=== PATIENT | male | born 1985 ===

== ENCOUNTER → 2020-09-29 10:30 | Outpatient (BNVA) | payer OTHER, SELFPAY | PROVIDERS: PCP Family Medicine; Visit Provider Nurse Practitioner Family | DX: Z76.89 Persons encountering health services in other specified circumstances (principal) ==

== ENCOUNTER 2022-02-23 09:59 | Outpatient (REF) | payer OTHER, SELFPAY ==
[2022-02-23 11:50] LABS: Estimated Average Glucose 108 mg/dL; Hemoglobin A1c % 5.4 %
[2022-02-23 12:14] LABS: Alanine Aminotransferase 40 U/L (0-40); Albumin Level 4.3 g/dL (3.5-5.0); Alkaline Phosphatase 60 U/L (39-117); Anion Gap 10 (12-20); Aspartate Amino Transferase 21 U/L (5-37); Bilirubin Total 0.5 mg/dL (0.0-1.0); Blood Urea Nitrogen 9 mg/dL (9-16); Calcium 9.5 mg/dL (8.4-10.2); Carbon Dioxide 30 mmol/L (22-29); Chloride 103 mmol/L (96-108); Cholesterol 179 mg/dL; Estimated Glomerular Filt Rate > 60; Glucose Fasting 98 mg/dL (60-99); HDL Cholesterol 35 mg/dL; LDL Cholesterol Calculated 117 mg/dl; Potassium 4.5 mmol/L (3.3-5.1); Sodium 138 mmol/L (135-145); Total Protein 7.4 g/dL (6.5-8.0); Triglycerides 137 mg/dL
[2022-02-23 12:35] LABS: Free T4 (Free Thyroxine) 0.82 ng/dL (0.71-1.85); Thyroid Stimulating Hormone 2.67 uIU/mL (0.32-4.0)
[2022-02-24 22:10] LABS: Triiodothyronine T3 Total 82 ng/dL (76-181)
== END 2022-02-23 10:00 | disposition home or self-care (01) ==
LOC: HO.WFDLDS 09:59
PROVIDERS: Visit Provider Family Medicine
DX: Z00.00 Encounter for general adult medical examination without abnormal findings (principal); E03.9 Hypothyroidism, unspecified; R73.01 Impaired fasting glucose
CPT/HCPCS: 36415; 80053; 80061; 83036; 84439; 84443; 84480

== ENCOUNTER 2022-09-16 11:40 | Outpatient (REF) | payer OTHER, SELFPAY ==
[2022-09-16 13:48] LABS: Mean Corpuscular HGB Conc 35.2 g/dl (31.0-36.0); Mean Corpuscular Hemoglobin 32.9 pg (27.0-33.0); Mean Corpuscular Volume 93.4 fL (80.0-98.0); Mean Platelet Volume 9.3 fL (9.4-12.4); Platelet Count 339 X10*3/uL (160-400); Red Blood Count 5.78 X10*6/uL (4.60-5.80); Red Cell Distribution Width 12.5 % (11.0-16.0); White Blood Count 5.7 X10*3/uL (4.8-10.8)
[2022-09-16 16:06] LABS: Alanine Aminotransferase 66 U/L (0-40); Albumin Level 4.5 g/dL (3.5-5.0); Alkaline Phosphatase 61 U/L (39-117); Anion Gap 13 (12-20); Aspartate Amino Transferase 35 U/L (5-37); Bilirubin Total 0.6 mg/dL (0.0-1.0); Calcium 9.3 mg/dL (8.4-10.2); Carbon Dioxide 25 mmol/L (22-29); Chloride 105 mmol/L (96-108); Cholesterol 196 mg/dL; Estimated Glomerular Filt Rate > 60; Glucose Fasting 99 mg/dL (60-99); HDL Cholesterol 37 mg/dL; LDL Cholesterol Calculated 126 mg/dl; Potassium 4.8 mmol/L (3.3-5.1); Sodium 138 mmol/L (135-145); TSH reflex Free T4 1.71 uIU/mL (0.32-4.0); Total Protein 7.8 g/dL (6.5-8.0); Triglycerides 168 mg/dL
[2022-09-16 16:25] LABS: Blood Urea Nitrogen 9 mg/dL (9-16)
== END 2022-09-16 11:41 | disposition home or self-care (01) ==
LOC: HO.WFDLDS 11:40
PROVIDERS: Hospitalist; Visit Provider Family Medicine
DX: Z00.00 Encounter for general adult medical examination without abnormal findings (principal); Z87.2 Personal history of diseases of the skin and subcutaneous tissue
CPT/HCPCS: 36415; 80053; 80061; 84443; 85027

== ENCOUNTER 2023-11-10 10:30 | Outpatient (AMB) | payer OTHER, SELFPAY ==
[2023-11-10 10:49] VITALS: BP 138/86; PULSE 92; O2SAT 95; BMI 43.0
--- NOTE | 2023-11-10 10:49 | A.OFFPC_ITS ---
Vital Signs 11/10/23 10:49 Height 5 ft 10 in Weight 300 lb BMI 43.0 BP 138/86 Blood Pressure Location Lt brachial Position Sitting Pulse 92 Pulse Source Pulse Oximeter Pulse Oximetry (%) 95 Oxygen Delivery Method Room Air Intake Visit Reasons: Palpitations Intake Note: Patient is here with concern of palitaions for 2-3 weeks. Allergies No Known Allergies [No Known Allergies*] Allergy (Verified 11/10/23 10:50) Tobacco use date assessed: 11/10/23 HPI Palpitations HPI Details 38 y/o male presents to f/u palpitations . ED Cardiac work-up for chest pain in January was negative. Pt reports palpitations x2-3 weeks. Pt does have wheezing which is worse at night. He only has an albuterol inhaler. [facility] Medical History Elevated fasting blood sugar Surgical History History of vasectomy History of appendectomy Family History Father No problems noted. Mother No problems noted. Sister No problems noted. Son No problems noted. Daughter No problems noted. 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 [id number] - PHQ-9 Billing: Patient declined-do not bill Source: Developed by Drs. Cachorro Bowman, Gayla Dye, Ortega Easley and colleagues, with an educational magali from [employer]. Thrive Questionnaire Date Thrive assessed: 11/10/23 I am a: Patient What is your living situation today?: I choose not to answer this question Within the past 12 months, did the food you bought not last and you didn't have the money to get more?: I choose not to answer this question Within the past 12 months, did you worry whether your food would run out before you got money to buy more?: I choose not to answer this question Do you have trouble paying for medicines?: I choose not to answer this question Do you have trouble getting transportation to medical appointments?: I choose not to answer this question Do you have trouble paying your heating and electricity bill?: I choose not to answer this question Do you have trouble taking care of your child, family member or friend?: I choose not to answer this question Do you have trouble with day-to-day activities such as bathing, preparing meals, shopping, managing finances, etc.?: I choose not to answer this question Are you currently unemployed and looking for a job?: I choose not to answer this question Are you interested in more education?: I choose not to answer this question THRIVE Score: 0 KATHLEEN-7 AMB Questionnaire KATHLEEN-7 Date KATHLEEN - 7 assessed: 10/28/22 Source: Developed by Drs. Cachorro Bowman, Gayla Dye, Ortega Easley and colleagues, with an educational magali from [employer]. KATHLEEN-7 Assessment Billing KATHLEEN-7 Assessment Tool: pt declined-do not bill ACT Questionnaire In the past 4 weeks, how much of the time did your asthma keep you from getting as much done at work, school or at home?: None of the time During the past 4 weeks, how often have you had shortness of breath?: Once a day During the past 4 weeks, how often did your asthma symptoms wake you up at night or earlier than usual in the morning?: 4 or more nights a week During the past 4 weeks, how often have you had to use your rescue inhaler or nebulizer medication?: 1-2 times a week (used albuterol inhaler daily) How would you rate your asthma control during the past 4 weeks?: Somewhat controlled Score: 13 Review of Systems Const Denies chills, Denies fatigue, Denies fever(s), Denies headache(s) and Denies weakness ENT Denies dizziness and Denies headache(s) Card Denies chest pain, Denies lightheadedness, Denies dyspnea and Denies other (Palpitations) Resp Denies cough, Denies dyspnea, Denies wheezing and Denies other ( shortness of breath) Musc Denies numbness and Denies tingling Neuro Denies dizziness, Denies headache(s), Denies numbness, Denies tingling, Denies paresthesias and Denies weakness Psych Denies anxiety and Denies depression Endo Denies fatigue Aller/Immun Denies wheezing Physical exam (Primary Care) BMI result Body Mass Index 43.0 Tobacco/Smoking Status: Tobacco use Status Tobacco use date assessed 11/10/23 11/10/23 10:53 Patient Tobacco Use Status Current everyday Tobacco 11/10/23 10:53 e-Cigarette/Vaping Use Never Used 11/10/23 10:53 Thrive Assessment: Date of Thrive Assessment Date Thrive assessed 10/28/22 11/10/23 10:53 Const General: no acute distress and well developed Nutritional Appearance: well nourished Orientation/consciousness: patient oriented x3 HENMT Head: Yes normocephalic and Yes atraumatic Eyes General: appearance normal, both eyes and all related structures Pupils: Equal, round and reactive pupils present EOM: EOMs intact bilaterally Resp Other: Wheezing Effort & Inspection: normal respiratory effort Auscultation: clear to auscultation bilaterally Cardio Rate: regular rate Rhythm: regular rhythm Heart sounds: S1 normal heart sound present, S2 normal heart sound present, no gallops, no murmurs and no rubs Neuro General: patient oriented x3 and gait normal Cranial nerves: Yes Equal, round and reactive pupils present Psych Affect: normal affect Assessment and Plan Assessment & Plan (1) Asthma: Code(s): J45.909 - Unspecified asthma, uncomplicated Plan: Asthma?exacerbation?for?more?than?a?month He?is?using?only?albuterol Will?refill?albuterol?inhaler.??Will?give?patient?Symbicort?as?well Will?give?him?a prednisone?taper?for?acute?exacerbation. (2) Palpitations: Code(s): R00.2 - Palpitations Plan: EKG: ?Normal?sinus?rhythm,?normal?axis,?normal?intervals,?no?hypertrophy,?no?ST-T-wav e?changes. Normal?EKG His?palpitations?are?likely?secondary?to?poorly?treated?asthma?with?longstanding ?exacerbation?and?frequent?use?of?albuterol. Will?treat?underlying?asthma Check?Holter?monitor?test?if?not?improved?with?treating?underlying?asthma. Close?followup (3) Obstructive sleep apnea: Code(s): G47.33 - Obstructive sleep apnea (adult) (pediatric) Plan: Use?CPAP Follow-up?with?sleep?medicine Orders: Orders AMB EKG-In Office Today R00.2 - Palpitations Medications: New prednisone 4 tabs daily for 4 days, 3 tabs daily for 2 days, 2 tabs daily for 2 days, 1 tab daily for 2 days PO daily; 10 days 28 tabs 0RF budesonide-formoterol 160-4.5 mcg/actuation (Symbicort) 2 puffs inhalation Q12H 30 days 10.2 grams 2RF albuterol sulfate 90 mcg/actuation (Ventolin HFA) 2 puffs inhalation Q4-6H 30 days PRN 8.5 grams 4RF shortness of breath or wheezing Coding Level of Care Code Est Pt Level 4 (44820) Diagnoses Asthma J45.909 Palpitations R00.2 Obstructive sleep apnea G47.33
== END 2023-11-10 11:33 | disposition home or self-care (01) ==
PROVIDERS: PCP Family Medicine; Visit Provider Family Medicine
DX: J45.909 Unspecified asthma, uncomplicated (principal); R00.2 Palpitations; G47.33 Obstructive sleep apnea (adult) (pediatric)
CPT/HCPCS: 99214

== ENCOUNTER 2024-03-15 16:21 | Outpatient (AMB) | payer OTHER, SELFPAY ==
[2024-03-15 16:26] VITALS: BP 122/68; PULSE 96; RESP 16; O2SAT 94; BMI 42.3
--- NOTE | 2024-03-15 16:26 | A.OFFPC_ITS ---
Vital Signs 03/15/24 16:26 Height 5 ft 10 in Weight 295 lb BMI 42.3 BP 122/68 Blood Pressure Location Lt brachial Position Sitting Respiration 16 Pulse 96 Pulse Source Pulse Oximeter Pulse Oximetry (%) 94 Oxygen Delivery Method Room Air Intake Visit Reasons: annual PE/ health maintance Intake Note: Patient is here today for his physical. He would like refill of Ventolin today. Allergies No Known Allergies [No Known Allergies*] Allergy (Verified 03/15/24 16:44) Medication List - Last Reconciled 03/15/24 by Hola Kline CNP albuterol sulfate 90 mcg/actuation 2 puffs inhalation Q4-6H 30 days albuterol sulfate 90 mcg/actuation (Ventolin HFA) 2 puffs inhalation Q4-6H PRN 30 days budesonide-formoterol 160-4.5 mcg/actuation (Symbicort) 2 puffs inhalation Q12H 30 days ketoconazole 2% 1 appl topical BID neomycin-polymyxin B-dexameth 1 appl ophthalmic (eye) QID prednisone 4 tabs daily for 4 days, 3 tabs daily for 2 days, 2 tabs daily for 2 days, 1 tab daily for 2 days PO daily; 10 days triamcinolone acetonide 0.1% appl topical Tobacco use date assessed: 03/15/24 Dental Screening Dental Screen Date: 03/15/24 Did you have a dental visit in the last 12 months?: No Did you have a dental problem in the last 6 months where you did not have access to dental care?: No Was dental information given to patient?: Patient has dentist HPI HPI Comments History of Present Illness Details 38-year-old male presents for an extende d physical exam He is a patient of [facility] He has history of asthma, OFELIA, obesity, and eczema He admits to taking his medications as prescribed without adverse reactions He offers no complaints and denies acute symptoms at this time He notes that he is followed by Ophthalmology for an horizontal line that intermittently appears in his right eye. he is currently on triamcinolone acetonide and neomycin-polymyxin B-dexameth eye ointment He admits to doing physical exercise 2-3 times weekly. He recently purchased a gym membership. His diet is not the best. He does intermittent fasting He smokes a pack of cigarettes daily and has been smoking for the past 15 years. He drinks at least 4-5 beers 2-3 times weekly He has not been seen by a dentist in over a year, but plans to schedule an appointment with his dentist [facility] Medical History Elevated fasting blood sugar Surgical History History of vasectomy History of appendectomy Family History Father No problems noted. Mother No problems noted. Sister No problems noted. Son No problems noted. Daughter No problems noted. Social History Housing: Other Patient Tobacco Use Status: Current everyday Tobacco user Cigarette Packs Per Day: 1 e-Cigarette/Vaping Use: Never Used Second Hand Smoke Exposure: No service: Yes Current occupational status: employed Current occupation: [employer] Current occupational exposures/hazards: No Cognitive needs: No Hearing needs: No Vision needs: No Questionnaire PHQ-9 Over the last 2 weeks, how often have you been bothered by any of the following problems? 1. Little interest or pleasure in doing things: not at all 2. Feeling down, depressed, or hopeless: not at all 3. Trouble falling or staying asleep, or sleeping too much: not at all 4. Feeling tired or having little energy: not at all 5. Poor appetite or overeating: not at all 6. Feeling bad about yourself - or that you are a failure or have let yourself or your family down: not at all 7. Trouble concentrating on things, such as reading the newspaper or watching television: not at all 8. Moving or speaking so slowly that other people could have noticed. Or the opposite - being so fidgety or restless that you have been moving around a lot more than usual: not at all 9. Thoughts that you would be better off or of hurting yourself in some way: not at all Total score: 0 Source: Developed by Drs. Cachorro Bowman, Gayla Dye, Ortega Easley and colleagues, with an educational magali from [employer]. Thrive Questionnaire Date Thrive assessed: 03/15/24 I am a: Patient What is your living situation today?: I have a steady place to live Within the past 12 months, did the food you bought not last and you didn't have the money to get more?: Never true Within the past 12 months, did you worry whether your food would run out before you got money to buy more?: Never true Do you have trouble paying for medicines?: No Do you have trouble getting transportation to medical appointments?: No Do you have trouble paying your heating and electricity bill?: No Do you have trouble taking care of your child, family member or friend?: No Do you have trouble with day-to-day activities such as bathing, preparing meals, shopping, managing finances, etc.?: No Are you currently unemployed and looking for a job?: No Are you interested in more education?: No THRIVE Score: 0 AUDIT C Alcohol Use Questionnaire (AUDIT-C) 1. How often do you have a drink containing alcohol?: 2-3 times a week 2. How many drinks containing alcohol do you have on a typical day when you are drinking?: 3 or 4 3. How often do you have six or more drinks on one occasion?: Never Total Score: 4 KATHLEEN-7 AMB Questionnaire KATHLEEN-7 Date KATHLEEN - 7 assessed: 03/15/24 Feeling nervous, anxious, or on edge: 0 = Not at all Not being able to stop or control worryin = Not at all Worrying too much about different things: 0 = Not at all Trouble relaxin = Not at all Being so restless that it is hard to sit still: 0 = Not at all Becoming easily annoyed or irritable: 0 = Not at all Feeling afraid as if something awful might happen: 0 = Not at all Total KATHLEEN-7 score (0-4 normal; 5-9 mild; 10-14 moderate; 15-21 severe): 0 Source: Developed by Drs. Cachorro Bowman, Gayla Dye, Ortega Easley and colleagues, with an educational magali from [employer]. ACT Questionnaire In the past 4 weeks, how much of the time did your asthma keep you from getting as much done at work, school or at home?: None of the time During the past 4 weeks, how often have you had shortness of breath?: Once a day During the past 4 weeks, how often did your asthma symptoms wake you up at night or earlier than usual in the morning?: Not at all During the past 4 weeks, how often have you had to use your rescue inhaler or nebulizer medication?: More than 3 times per day (Once a DAY) How would you rate your asthma control during the past 4 weeks?: Well controlled Score: 17 Review of Systems Const Details: Denies chills, Denies fatigue, Denies fever(s), Denies headache(s) and Denies weakness HEENT Denies change in vision, Denies dizziness, Denies headache(s), Denies hearing loss, Denies nasal congestion, Denies sinus pain, Denies sinus pressure and Denies sore throat Card Denies chest pain, Denies lightheadedness, Denies dyspnea and Denies other (palpitations) Resp Denies cough, Denies dyspnea and Denies wheezing GI Denies abdominal pain, Denies melena, Denies hematochezia, Denies change in bowel habits, Denies dyspepsia and Denies nausea Denies hematuria and Denies dysuria Musc Denies abnormal gait, Denies myalgias, Denies arthralgias, Denies numbness and Denies tingling Skin/Breast Denies rash, Denies unusual bruising and Denies wounds Neuro Denies abnormal gait, Denies dizziness, Denies headache(s), Denies memory loss, Denies numbness, Denies Sensory deficit (Neuro), Denies tingling and Denies weakness Psych Denies anxiety, Denies depression and Denies memory loss Endo Denies cold intolerance, Denies fatigue, Denies heat intolerance, Denies polydipsia and Denies polyuria Mata/Lymph Denies easy bleeding and Denies easy bruising Aller/Immun Denies wheezing Physical exam (Primary Care) Vital Signs: Last Vital Signs Pulse 96 03/15/24 16:26 Resp 16 03/15/24 16:26 BP 122/68 03/15/24 16:26 Pulse Ox 94 03/15/24 16:26 Oxygen Delivery Method Room Air 03/15/24 16:26 BMI result Body Mass Index 42.3 Tobacco/Smoking Status: Tobacco use Status Tobacco use date assessed 03/15/24 03/15/24 17:01 Patient Tobacco Use Status Current everyday Tobacco 03/15/24 16:29 e-Cigarette/Vaping Use Never Used 03/15/24 16:29 PHQ-9: PHQ-9 Score PHQ-9: Total score 0 03/15/24 16:45 Thrive Assessment: Date of Thrive Assessment Date Thrive assessed 03/15/24 03/15/24 16:36 Const Other: General: no acute distress, well developed, alert and awake Nutritional Appearance: well nourished Orientation/consciousness: patient oriented x3 [facility] Head: Yes normocephalic and Yes atraumatic Ears: hearing grossly normal bilaterally and TM's normal bilaterally General nose exam: Normal external nose present and Normal nares present Mouth: Normal oral and palatal mucosa present and moist mucous membranes Teeth and gingiva: dentition normal Throat: Yes oropharynx normal Eyes Pupils: Equal, round and reactive pupils present and Pupil accommodation reflex normal EOM: EOMs intact bilaterally Neck Neck: Yes normal visual inspection, Yes no lymphadenopathy and Yes trachea midline Thyroid: Thyroid normal Carotids: no bruits Lymphatic: no lymphadenopathy noted Chest Chest palpation & inspection: normal inspection of the chest Resp Effort & Inspection: normal respiratory effort Auscultation: clear to auscultation bilaterally Cardio Rate: regular rate Rhythm: regular rhythm Heart sounds: S1 normal heart sound present, S2 normal heart sound present, no gallops, no murmurs and no rubs Bruits: no abdominal aortic bruits and no carotid bruits GI Palpation (GI): No Abdominal aortic bruit present, Soft to palpation, nontender, No hepatosplenomegaly present and No Rebound tenderness present Auscultation: normal bowel sounds General: Yes no CVA tenderness Back/Spine/Pelvis Back: no CVA tenderness Cervical Spine: cervical ROM normal and No Cervical spine tenderness Thoracic/Lumbar Spine: thoraco-lumbar ROM normal, No pain with thoraco-lumbar ROM, No thoracic spinal tenderness and No lumbar spinal tenderness Skin General: warm and dry. Normal skin color. Normal skin turgor Lesions: no lesions Rashes: no rashes Trauma: no lacerations or abrasions Wounds: no wounds Nails: normal Neuro General: patient oriented x3, gait normal and CN's II-XI intact bilaterally Cranial nerves: Yes Equal, round and reactive pupils present Cognition (Neuro): normal cognition Gait exam (Neuro): Normal gait present Motor exam (neuro): 5/5 motor strength present throughout Sensory Exam: No Sensory deficit (Neuro) Deep tendon reflexes (DTR's): Right patellar reflex intensity grade: 2+ and Left patellar reflex intensity grade: 2+ Extrem General: Yes normal to inspection, No edema and No calf tenderness Psych Appearance: grossly normal Affect: normal affect Attitude: cooperative Thought process: Normal thought process present Assessment and Plan Assessment & Plan (1) Adult general medical exam: Code(s): Z00.00 - Encounter for general adult medical examination without abnormal findings Plan: No significant physical restrictions or limitations Continue current treatment regimen Healthy diet and routine exercise encouraged Encouraged to limit or avoid drinking alcohol. He declines referral to addiction medicine at this time and notes that he will reduce his amount of alcohol intake Advised to get lab work done and follow-up with PCP for telehealth visit in 2-3 weeks for labs review Return sooner with symptoms or concerns Verbalized understanding and agreed with treatment plan (2) Asthma: Code(s): J45.909 - Unspecified asthma, uncomplicated Plan: ACT score is 17, partially control asthma Continue current treatment regimen Follow-up with symptoms or concerns Verbalized understanding and agreed with treatment plan (3) Smoking: Code(s): F17.200 - Nicotine dependence, unspecified, uncomplicated Plan: He smokes a pack of cigarettes daily and has been smoking for the past 15 years. He has no desire to quit smoking at this time. He notes that he will try quitting without medication treatment. He declines medication treatment for smoking cessation at this time. Instructed on the health risk and complications of cigarette smoking. Advised to inform his PCP if he changes mind on medication treatment for smoking cessation. Verbalized understanding and agreed with the plan. (4) Morbid obesity with BMI of 40.0-44.9, adult: Code(s): E66.01 - Morbid (severe) obesity due to excess calories; Z68.41 - Body mass index [BMI] 40.0-44.9, adult Plan: He currently weighs 295 lb, BMI is 42.3 He admits to routine exercise but generally eats poorly Declines referral to weight management and notes that he will continue to exercise routinely and start making healthy dietary changes Healthy diet and routine exercise encouraged He may inform his PCP if he changes his mind on with management referral Verbalized understanding and agreed with the plan (5) Laboratory tests ordered as part of a complete physical exam (CPE): Code(s): Z00. - Encounter for general adult medical examination without abnormal findings Plan: Fasting labs ordered in preparation of a complete physical exam. Advised to fast for at least 10 hours before getting labs drawn. May drink water Verbalized understanding and agreed with treatment plan. Orders: Orders Comprehensive Mona. Panel Fast 03/15/24 Z00. - Encounter for general adult medical examination without abnormal findings TSH reflex Free T4 03/15/24 Z00. - Encounter for general adult medical examination without abnormal findings UA CC w/rflx Micro + Cult 03/15/24 Z00. - Encounter for general adult medical examination without abnormal findings Complete Blood Count Auto Diff 03/15/24 Z00. - Encounter for general adult medical examination without abnormal findings Lipid Panel 03/15/24 Z00. - Encounter for general adult medical examination without abnormal findings Microalbumin, Random (w Creat) 03/15/24 Z00. - Encounter for general adult medical examination without abnormal findings Medications: Discontinued ketoconazole 2% Discontinued Reason: Patient no longer taking 1 appl topical BID 30 grams 1RF prednisone Discontinued Reason: Patient no longer taking 4 tabs daily for 4 days, 3 tabs daily for 2 days, 2 tabs daily for 2 days, 1 tab daily for 2 days PO daily; 10 days 28 tabs 0RF albuterol sulfate 90 mcg/actuation Discontinued Reason: Patient no longer taking 2 puffs inhalation Q4-6H 30 days 8.5 grams 4RF Coding Level of Care Code Est Pt Prev Care 18-39y([id number]) Diagnoses Adult general medical exam Z00. Asthma J45.909 Smoking F17.200 Morbid obesity with BMI of 40.0-44.9, adult E66.01; Z68.41 Laboratory tests ordered as part of a complete physical exam (CPE) Z00.00
== END 2024-03-15 17:09 | disposition home or self-care (01) ==
PROVIDERS: PCP Family Medicine; Visit Provider Nurse Practitioner Family
DX: Z00.00 Encounter for general adult medical examination without abnormal findings (principal); E66.01 Morbid (severe) obesity due to excess calories; Z68.41 Body mass index [BMI] 40.0-44.9, adult; J45.909 Unspecified asthma, uncomplicated; F17.200 Nicotine dependence, unspecified, uncomplicated
CPT/HCPCS: 99395

== ENCOUNTER 2024-03-21 15:38 | Outpatient (REF) | payer OTHER, SELFPAY ==
[2024-03-21 17:35] LABS: MANUAL DIFF FLAG NO
[2024-03-21 17:46] LABS: Basophils Absolute Auto 0.1 X10*3/uL (0.0-0.2); Eosinophils Absolute Auto 0.3 X10*3/uL (0.0-0.4); Eosinophils Percent Auto 3.9 % (0-4); Hematocrit 51.8 % (42.0-52.0); Hemoglobin 18.5 g/dl (14.0-18.0); Imm Gran Abs Auto 0.03 X10*3/uL (0.00-0.03); Imm Gran Pct Auto 0.4 % (0.0-0.4); Lymphocytes Percent Auto 40.9 % (20-40); Mean Corpuscular HGB Conc 35.7 g/dl (31.0-36.0); Mean Corpuscular Hemoglobin 33.6 pg (27.0-33.0); Mean Corpuscular Volume 94.2 fL (80.0-98.0); Mean Platelet Volume 9.3 fL (9.4-12.4); Monocytes Absolute Auto 0.6 X10*3/uL (0.1-1.2); Monocytes Percent Auto 8.2 % (2-11); Neutrophils Absolute Auto 3.4 x10*3/uL (2.0-8.3); Neutrophils Percent Auto 45.6 % (45-73); Platelet Count 336 X10*3/uL (160-400); Red Cell Distribution Width 12.7 % (11.0-16.0); White Blood Count 7.4 X10*3/uL (4.8-10.8)
[2024-03-21 17:46] LABS: Appearance Urine Clear; Color Urine Dark Yellow; Glucose Urine UA Negative (Negative); Leukocyte Esterase Urine Trace (Negative); Nitrite Urine Negative (Negative); Specific Gravity - Urine 1.025 (1.005-1.025); UMIC TRIGGER UACC YES; Urine Blood Negative (Negative); Urine Ketones 15 mg/dL (Negative); Urine Protein Trace mg/dL (Neg-Trace)
[2024-03-21 18:03] LABS: Alanine Aminotransferase 75 U/L (0-40); Albumin Level 4.3 g/dL (3.5-5.0); Alkaline Phosphatase 71 U/L (39-117); Anion Gap 11 (12-20); Aspartate Amino Transferase 39 U/L (5-37); Bilirubin Total 1.1 mg/dL (0.0-1.0); Blood Urea Nitrogen 10 mg/dL (9-16); Calcium 9.5 mg/dL (8.4-10.2); Carbon Dioxide 26 mmol/L (22-29); Chloride 104 mmol/L (96-108); Cholesterol 173 mg/dL (<200); Estimated Glomerular Filt Rate > 60; Glucose Fasting 89 mg/dL (60-99); HDL Cholesterol 43 mg/dL (>40); LDL Cholesterol Calculated 110 mg/dL (<100); Potassium 4.1 mmol/L (3.3-5.1); Sodium 137 mmol/L (135-145); Triglycerides 103 mg/dL (<150)
[2024-03-21 18:16] LABS: Microalbum/Creatinine Ratio Ur 21.6 ug/mg cr (<30)
[2024-03-21 18:20] LABS: TSH reflex Free T4 2.24 uIU/mL (0.32-4.0)
[2024-03-21 21:17] LABS: Bacteria Urine None Seen (None Seen); RBC Urine 0-2 /HPF (0-2); Squamous Epithelial Cell Urine 0-2 /HPF (0-2); WBC Urine 0-5 /HPF (0-5)
== END 2024-03-21 15:39 | disposition home or self-care (01) ==
LOC: HO.WFDLDS 15:38
PROVIDERS: Visit Provider Nurse Practitioner Family
DX: Z00.00 Encounter for general adult medical examination without abnormal findings (principal); Z13.89 Encounter for screening for other disorder
CPT/HCPCS: 36415; 80053; 80061; 81001; 82043; 82570; 84443; 85025

== ENCOUNTER 2024-04-08 16:37 | Outpatient (AMB) | payer OTHER, SELFPAY ==
--- NOTE | 2024-04-08 16:30 | MHC.PC.OV ---
Intake Visit Reasons: f/u lab review Intake Note: Patient is scheduled to follow up on labs today. Allergies No Known Allergies [No Known Allergies*] Allergy (Verified 04/08/24 16:32) Tobacco use date assessed: 03/15/24 Dental Screening Dental Screen Date: 03/15/24 HPI f/u lab review HPI Details 38 y/o male presents to f/u labs via telemedicine. Labs were drawn 03/21/24. Reviewed labs with pt. Elevated AST of 39, ALT 75. Triglycerides 103. TC 173. LDL 110. HDL 43. PFSH Medical History Elevated fasting blood sugar Surgical History History of vasectomy History of appendectomy Family History Father No problems noted. Mother No problems noted. Sister No problems noted. Son No problems noted. Daughter No problems noted. 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 Cachorro Bowman, Gayla Dye, Ortega Easley and colleagues, with an educational magali from [employer]. Review of Systems Const Denies chills, Denies fatigue, Denies fever(s), Denies headache(s) and Denies weakness ENT Denies dizziness and Denies headache(s) Card Denies dyspnea Resp Denies cough, Denies dyspnea, Denies wheezing and Denies other (shortness of breath) Musc Denies numbness and Denies tingling Neuro Denies dizziness, Denies headache(s), Denies numbness, Denies tingling and Denies weakness Psych Denies anxiety and Denies depression Endo Denies fatigue Aller/Immun Denies wheezing Physical exam (Primary Care) Tobacco/Smoking Status: Tobacco use Status Tobacco use date assessed 03/15/24 04/08/24 16:34 Patient Tobacco Use Status Current everyday Tobacco 04/08/24 16:34 e-Cigarette/Vaping Use Never Used 04/08/24 16:34 Thrive Assessment: Date of Thrive Assessment Date Thrive assessed 03/15/24 04/08/24 16:34 Telehealth Telehealth Telehealth Platform: Telephone Location of provider rendering services: practice address Location of patient: address on file Patient Identification confirmed using: Name, : Yes Telehealth method: voice only Patient verbally consented to treatment: Yes Patient verbally consented to billing insurance company: Yes Patient informed of any privacy concerns related to visit: Yes Assessment and Plan Assessment & Plan (1) Elevated liver enzymes: Code(s): R74.8 - Abnormal levels of other serum enzymes Plan: Elevated?liver?enzymes. Patient?with?known?alcohol?use?disorder Encouraged?decreasing?alcohol?intake?and?weight?loss Will?check?ultrasound Will?follow-up?to?discuss?repeat?liver?enzymes?and?other?interventions. (2) Elevated LDL cholesterol level: Code(s): E78.00 - Pure hypercholesterolemia, unspecified Plan: Mildly?elevated?LDL?cholesterol?and?I?encouraged?weight?loss Orders: Orders US abdomen merida w elastography Today R74.8 - Abnormal levels of other serum enzymes Coding Level of Care Code Tele Est Pt Level 2 (87652) Diagnoses Elevated liver enzymes R74.8 Elevated LDL cholesterol level E78.00
== END 2024-04-08 17:15 | disposition home or self-care (01) ==
LOC: HO.HMGFM 16:37
PROVIDERS: PCP Family Medicine; Visit Provider Family Medicine
DX: R74.8 Abnormal levels of other serum enzymes (principal); E78.00 Pure hypercholesterolemia, unspecified
CPT/HCPCS: 99212

== ENCOUNTER 2024-04-19 10:00 | Outpatient (REF) | payer OTHER, SELFPAY ==
--- NOTE | ~2024-04-19 | US_ITS ---
EXAMINATION: US ABDOMEN LIMITED WITH LIVER ELASTOGRAPHY CLINICAL INFORMATION: Elevated liver enzymes. COMPARISON: None available. TECHNIQUE: Real-time imaging of the abdominal viscera. Noninvasive ultrasound liver fibrosis assessment is performed using [place] ElastPQ point quantification shear wave elastography (2D-SWE) with a C5-2 MHz transducer. Multiple elastography samples are obtained. FINDINGS: PANCREAS: Largely obscured by overlapping bowel gas. LIVER: The liver demonstrates normal contour and increased echogenicity, with pericholecystic sparing. No focal lesion or intrahepatic biliary duct dilatation. The right lobe measures 22.7 cm in length. The left lobe measures 13.4 cm in length. Portal flow is towards the liver (hepatopetal). Shear wave liver elastography median stiffness is 1.44 m/s (reference: normal median stiffness is 1.3 m/s or less). IQR/median stiffness to assess sampling precision is 0.09 (reference: good quality data set is IQR/median stiffness of 0.15 or less). GALLBLADDER: Normal. The gallbladder is physiologically distended without evidence of stones, sludge, polyps, wall thickening or pericholecystic fluid. COMMON BILE DUCT: Normal in caliber measuring 0.4 cm in diameter. RIGHT KIDNEY: Normal. No hydronephrosis. No renal calculi or focal parenchymal lesions. The kidney measures 11.1 cm in maximum dimension. FREE FLUID: None. US/US abdomen merida w elastography IMPRESSION: 1. There is generalized increase in hepatic echotexture, consistent with fatty infiltration or hepatocellular disease. Please correlate clinically. Characteristic pericholecystic sparing favors fatty infiltration. No focal hepatic mass or intrahepatic biliary dilatation is seen. 2. There is hepatomegaly. 3. Liver elastography: In the absence of other known clinical signs, measurements rule out compensated advanced chronic liver disease. If there are known clinical signs, further testing may be needed for confirmation. 4. Technically limited ultrasound examination the pancreas. REFERENCE: Society of Radiologists in Ultrasound Liver Stiffness Thresholds (2020): LIVER STIFFNESS THRESHOLDS: *Liver Stiffness equal or less than 1.3 m/s: High probability of being normal. *Liver Stiffness less than 1.7 m/s: In the absence of other known clinical signs, rules out compensated advanced chronic liver disease. *Liver Stiffness 1.7-2.1 m/s: Suggestive of compensated advanced chronic liver disease but need further test for confirmation. *Liver Stiffness over 2.1 m/s: Rules in compensated advanced chronic liver disease. *Liver Stiffness over 2.4 m/s: Suggestive of clinically significant portal hypertension. QUALITY OF DATA SET: *IQR/Median value equal or less than 0.15 implies a quality data set. *IQR/Median value over 0.15 implies a poor quality data set. SIGNIFICANT CHANGE FROM PRIOR EXAM: Significant change if liver stiffness measurement is 10% or greater from prior exam. OTHER CONSIDERATIONS: The stage of liver fibrosis may be overestimated in the setting of acute hepatitis, liver inflammation, elevated liver function tests, hepatic vascular congestion, obstructive cholestasis, non-fasting state, and infiltrative diseases such as amyloidosis and lymphoma. In some patients with NAFLD, the liver stiffness thresholds for compensated advanced chronic liver disease may be lower. In causes other than viral hepatitis and NAFLD, liver stiffness thresholds are not well established.
== END 2024-04-19 10:01 | disposition home or self-care (01) ==
LOC: HO.US 10:00
PROVIDERS: PCP Family Medicine; Visit Provider Family Medicine
DX: R74.8 Abnormal levels of other serum enzymes (principal)
CPT/HCPCS: 76705; 76981

== ENCOUNTER 2024-05-29 16:30 | Outpatient (AMB) | payer OTHER, SELFPAY ==
--- NOTE | 2024-05-29 16:36 | A.OFFPC_ITS ---
Vital Signs 05/29/24 16:39 Height 5 ft 11 in Weight 300 lb BMI 41.8 BP 110/70 Blood Pressure Location Rt brachial Position Sitting Respiration 16 Pulse 96 Pulse Source Pulse Oximeter Temp 98.3 F Temp Source Oral Pulse Oximetry (%) 95 Oxygen Delivery Method Room Air Intake Visit Reasons: review liver eslatography Intake Note: lab results Allergies No Known Allergies [No Known Allergies*] Allergy (Verified 05/29/24 16:37) Tobacco use date assessed: 03/15/24 Dental Screening Dental Screen Date: 03/15/24 HPI review liver eslatography HPI Details 38 y/o male presents to review liver blossom stography. Liver elastography done 04/19/24. Showed generalized increase in hepatic echotexture, consistent with fatty infiltration or hepatocellular disease. Also showed some hepatomegaly. Labs drawn 03/21/24. Reviewed labs with pt. Ongoing elevated Hgb - 18.5. Triglycerides 103. TC 173. LDL 110. HDL 43. AST 39, ALT 75. HPI Comments History of Present Illness Details Documentation assistance for Olvin Mejia MD, was provided by Torrey Maurice, [employer] on 05/29/2024 at 4:38 PM EST. I, Dr. Mejia, have read, observed, and verified documentation. [facility] Medical History Elevated fasting blood sugar Surgical History History of vasectomy History of appendectomy Family History Father No problems noted. Mother No problems noted. Sister No problems noted. Son No problems noted. Daughter No problems noted. 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 Cachorro Bowman, Gayla Dye, Ortega Easley and colleagues, with an educational magali from [employer]. Review of Systems Const Denies chills, Denies fatigue, Denies fever(s), Denies headache(s) and Denies weakness ENT Denies dizziness and Denies headache(s) Card Denies dyspnea Resp Denies cough, Denies dyspnea, Denies wheezing and Denies other (shortness of breath) Musc Denies numbness and Denies tingling Neuro Denies dizziness, Denies headache(s), Denies numbness, Denies tingling and Denies weakness Psych Denies anxiety and Denies depression Endo Denies fatigue Aller/Immun Denies wheezing Physical exam (Primary Care) Vital Signs: Last Vital Signs Temp 98.3 F 05/29/24 16:39 Pulse 96 05/29/24 16:39 Resp 16 05/29/24 16:39 BP 110/70 05/29/24 16:39 Pulse Ox 95 05/29/24 16:39 Oxygen Delivery Method Room Air 05/29/24 16:39 BMI result Body Mass Index 41.8 Tobacco/Smoking Status: Tobacco use Status Tobacco use date assessed 03/15/24 05/29/24 16:36 Patient Tobacco Use Status Current everyday Tobacco 05/29/24 16:36 e-Cigarette/Vaping Use Never Used 05/29/24 16:36 Thrive Assessment: Date of Thrive Assessment Date Thrive assessed 03/15/24 05/29/24 16:36 Const General: well developed; No acute distress Nutritional Appearance: well nourished and obese morbidly obese Orientation/consciousness: patient oriented x3 [facility] Head: Yes normocephalic and Yes atraumatic Eyes General: appearance normal, both eyes and all related structures Pupils: Equal, round and reactive pupils present EOM: EOMs intact bilaterally Resp Effort & Inspection: normal respiratory effort Auscultation: clear to auscultation bilaterally Cardio Rate: regular rate Rhythm: regular rhythm Heart sounds: S1 normal heart sound present, S2 normal heart sound present, no gallops, no murmurs and no rubs Neuro General: patient oriented x3 and gait normal Cranial nerves: Yes Equal, round and reactive pupils present Psych Affect: normal affect Assessment and Plan Assessment & Plan (1) Elevated liver enzymes: Code(s): R74.8 - Abnormal levels of other serum enzymes Plan: Elevated?liver?enzymes?and?ultrasound?was?ordered. Liver?ultrasound?shows?hepatic?steatosis.??Elastography?rules?out?compensated?ch ronic?liver?disease. Encouraged?weight?loss. Avoid?Tylenol?and?alcohol Will?continue?to?follow (2) Elevated LDL cholesterol level: Code(s): E78.00 - Pure hypercholesterolemia, unspecified Plan: LDL?cholesterol?is?a?little?above?goal?of?less?than?100 As?above,?recommended?weight?loss?and?recommended?a?diet? low?in?saturated?fats?and?cholesterol We?can?follow-up?on?this?at?his?next?blood?draw (3) Polycythemia: Code(s): D75.1 - Secondary polycythemia Plan: Improving/resolving Will?monitor (4) Asthma: Code(s): J45.909 - Unspecified asthma, uncomplicated Plan: Improved?with?Symbicort Continue?Symbicort?as?prescribed?and?use?albuterol?for?breakthrough?symptoms/res cue Reviewed?use?of?each?medication?and?patient?understands Orders: Orders Comprehensive [place]. Panel Fast Today R74.8 - Abnormal levels of other serum enzymes, Z00.00 - Encounter for general adult medical examination without abnormal findings Lipid Panel Today E78.00 - Pure hypercholesterolemia, unspecified, Z00.00 - Encounter for general adult medical examination without abnormal findings Complete Blood Count Auto Diff Today D75.1 - Secondary polycythemia, Z00.00 - Encounter for general adult medical examination without abnormal findings Coding Level of Care Code Est Pt Level 4 (63148) Diagnoses Elevated liver enzymes R74.8 Elevated LDL cholesterol level E78.00 Polycythemia D75.1 Asthma J45.909
[2024-05-29 16:39] VITALS: BP 110/70; PULSE 96; RESP 16; TEMP 36.8; O2SAT 95; BMI 41.8
== END 2024-05-29 16:57 | disposition home or self-care (01) ==
PROVIDERS: PCP Family Medicine; Visit Provider Family Medicine
DX: R74.8 Abnormal levels of other serum enzymes (principal); E78.00 Pure hypercholesterolemia, unspecified; D75.1 Secondary polycythemia; J45.909 Unspecified asthma, uncomplicated
CPT/HCPCS: 99214

== ENCOUNTER 2025-01-08 14:23 | Outpatient (REF) | payer OTHER, SELFPAY ==
--- OUTSIDE RECORDS SUMMARY | 2025-01-08 17:11 | XMS_ITS ---
Author Name [facility] Organization Unknown Encounters Encounter Type Encounter Reason Primary Diagnosis Location Date Ambulatory [facility], [facility] ([facility] 10/24/2024
--- OUTSIDE RECORDS SUMMARY | 2025-01-08 17:11 | XMS_ITS | Continuity of Care Document ---
Author Name [facility] Organization [facility] Care Team Providers Care Communications Department Chairperson Name Role Phone [facility] Unavailable Unavailable Problems Combined list of problems from Department of Defense and Veterans Affairs facilities. It does not include entries that were removed or entered in error. Problem Status Onset Date Problem Type Date of Resolution Comments Source Asthma, unspecified Active Condition [facility] [place] [facility] Chronic post-traumatic stress disorder following combat ([place] [id number]) Active Condition [facility] [place] Lack of Housing (ICD-9-CM V60.0) Active Condition [facility] [place] [facility] Rotator cuff (capsule) sprain or strain (ICD-9-CM 840.4) Inactive Condition 06/27/2011 [facility] [place] [facility] Allergies, Adverse Reactions, Alerts Combined list of allergies from Department of Defense and Veterans Affairs facilities. It does not include entries that were removed or entered in error. Substance Category Reaction Severity Reaction type Status Date Reported Comments Source CATS Propensity to adverse reaction (finding) ITCHING,W ATERING EYES, HIVES, Eruption active 5 [facility] [place] [facility] DOGS Propensity to adverse reaction (finding) ITCHING,W ATERING EYES, HIVES, Eruption active [facility] Immunizations Combined list of available immunizations from the Department of Defense and Veterans Affairs facilities. Immunization Series Date Given Administered By Site Reaction Lot Number CVX Code [employer] Status Comments Source PNEUMOCOCCAL, UNSPECIFIED FORMULATION 2010 109 complet ed Site: Left Deltoid [place] DTAP, UNSPECIFIED FORMULATION 2010 107 complet ed [facility] [place] [facility] [facility] TD(ADULT) UNSPECIFIED FORMULATION 2010 139 complet ed [facility] [place] [facility] [facility] Social History Combined list of available smoking, tobacco, and other social history from Department of Defense and Veterans Affairs facilities. Social History Type Response Date Comment Sour e Tobacco smoking status PRIS V1-PT NOT INTERESTED IN QUIT TOBACCO USE 12/02/2015 [place] History of tobacco use CURRENT SMOKER 11/18/2015 1/2 pack a day [place] History of tobacco use QUIT TOBACCO USE > 7 YEARS AGO 06/27/2011 Patient quit ten years ago. [place] History of tobacco use QUIT TOBACCO USE IN PAST YEAR 02/09/2006 [place] History of tobacco use LIFETIME NON-TOBACCO USER 11/24/2005 does not smoke [place]
--- OUTSIDE RECORDS SUMMARY | 2025-01-08 17:11 | XMS_ITS | Data Portability ---
Author Organization THAD [facility] [address] Address [address] [place] [address] Care Team Providers Care [employer] D[employer] Steward/Stewardess Name Role Phone JOEL PAET Primary Care Provider Assessment No assessment recorded. Plan of Treatment Reminders Order Date Submit Date Provider Last Modified By Organization Details Last Modified Time Details Appointments None recorded. Lab urinalysis , dipstick 2024 025 [email or web address] [facility], [address] [place] [address], [phone], 18:52:37 Referral None recorded. Procedures None recorded. Surgeries None recorded. Imaging None recorded. Medication Orders None recorded. Patient TargetsNo targets recorded. Patient InstructionsNo instructions recorded. Reason for Referral None Reported. Results Created Date Observation Date Name Description Value Unit Range Abnormal Flag Note LastModifiedBy Organization Detail LastModifiedTime 10/24/1910/24/2024 urina lysis , dipst ick Unknown Analyte Normal = light yellow Not Available [facility] [address] [place] [address], [phone], 10/24/2024 18:39:41 10/24/1910/24/2024 urina lysis , dipst ick Unknown Analyte Normal = clear Not Available [facility] [address] [place] [address], [phone], 10/24/2024 18:39:41 10/24/19 25 10/24/2024 urina lysis , dipst ick Unknown Analyte Normal = negati ve Not Available [facility] [address] [place] [address], [address], 10/24/2024 18:39:41 10/24/19 25 10/24/2024 urina lysis , dipst ick Unknown Analyte Negati ve Not Available [facility] [address] [place] [address], [address], 10/24/2024 18:39:41 10/24/19 25 10/24/2024 urina lysis , dipst ick Unknown Analyte Normal = Negati ve Not Available [facility] [address] [place] [address], [phone], 10/24/2024 18:39:41 10/24/19 25 10/24/2024 urina lysis , dipst ick Unknown Analyte Small Not Available [facility] [address] [place] [address], [address], 10/24/2024 18:39:41 10/24/19 25 10/24/2024 urina lysis , dipst ick Unknown Analyte Normal = Negati ve Not Available [facility] [address] [place] [address], [phone], 10/24/2024 18:39:41 10/24/19 25 10/24/2024 urina lysis , dipst ick Unknown Analyte Trace Not Available [facility] [address] [place] [address], [address], 10/24/2024 18:39:41 10/24/19 25 10/24/2024 urina lysis , dipst ick Unknown Analyte Normal = 1.010, 1.015, 1.020 Not Available [facility] [address] [place] [address], [address], 10/24/2024 18:39:41 10/24/19 25 10/24/2024 urina lysis , dipst ick Unknown Analyte Normal = Negati ve Not Available [facility] [address] [place] [address], [address], 10/24/2024 18:39:41 10/24/19 25 10/24/2024 urina lysis , dipst ick Unknown Analyte Negati ve Not Available [facility] [address] [place] [address], [phone], 10/24/2024 18:39:41 10/24/19 25 10/24/2024 urina lysis , dipst ick Unknown Analyte Normal = 6.5, 7.0, 7.5, 8.0 Not Available [facility] [address] [place] [address], [address], 10/24/2024 18:39:41 10/24/19 25 10/24/2024 urina lysis , dipst ick Unknown Analyte Normal = Negati ve Not Available [facility] [address] [place] [address], [address], 10/24/2024 18:39:41 10/24/19 25 10/24/2024 urina lysis , dipst ick Unknown Analyte 30 mg/dL Not Available [facility] [address] [place] [address], [address], 10/24/2024 18:39:41 10/24/19 25 10/24/2024 urina lysis , dipst ick Unknown Analyte Normal = Negati ve Not Available [facility] [address] [place] [address], [address], 10/24/2024 18:39:41 10/24/19 25 10/24/2024 urina lysis , dipst ick Unknown Analyte Negati ve Not Available [facility] [address] [place] [address], [address], 10/24/2024 18:39:41 10/24/19 25 10/24/2024 urina lysis , dipst ick Unknown Analyte Normal = Negati ve Not Available [address] [place] [address] [place] [address], [address], 10/24/2024 18:39:41 10/24/19 25 10/24/2024 urina lysis , dipst ick Unknown Analyte Trace Not Available [address] [place] [address], [address], 10/24/2024 18:39:41 10/24/19 25 10/24/2024 urina lysis , dipst ick Unknown Analyte Yellow Not Available [address], [address], 10/24/2024 18:39:41 10/24/19 25 10/24/2024 urina lysis , dipst ick Unknown Analyte Clear Not Available [address] [place] [address], [address], 10/24/2024 18:39:41 10/24/19 25 10/24/2024 urina lysis , dipst ick Unknown Analyte 1.030 Not Available [address] [place] [address], [address], 10/24/2024 18:39:41 10/24/19 25 10/24/2024 urina lysis , dipst ick Unknown Analyte 6.5 Not Available [facility], [address], 10/24/2024 18:39:41 10/24/19 25 10/24/2024 urina lysis , dipst ick Unknown Analyte Normal = 0.2, 1.0 Not Available [facility] [address] [place] [address], [address], 10/24/2024 18:39:41 10/24/1910/24/2024 urina lysis , dipst ick Unknown Analyte 0.2 E.U./d L Not Available _ [facility] [address] [place], [address], 10/24/2024 18:39:41 Result Notes None recorded. Problems Name Problem SNOMED Code Status Onset Date Resolution Date Notes Provider Name and Address Organization Details Recorded Time Asthma 365765412 Active THAD Key - [facility] 10/24/2024 18:37:44 Problem Notes None recorded. Medical Equipment None Reported. Allergies No known drug allergies Medications Name Sig Start Date Stop Date Status Note LastModified by Organization Details LastModified Time albuterol sulfate active Not Available Not Available Not Available Vitals Date Recorded Body height Body mass index (BMI) Body weight Oxygen saturation Oxygen saturation in Arterial blood by Pulse oximetry Pain severity - 0-10 verbal numeric rating [Score] - Reported Heart rate Respiratory rate Body temperature Systolic blood pressure Diastolic blood pressure Provider Name and Address Organization Details Last Updated DateTime 180.34 cm 41.1 kg/m2 093696. 75 g 100 % 100 % 5 100 /min 18 /min 98 [degF] 120 mm[Hg] 80 mm[Hg] Rodrigue Johnson [facility] 18:34:47 Social History Question Answer Notes LastModified by Organizat ion Details LastModified Time Tobacco Smoking Status Current Every Day Smoker THAD Key [facility] 10/24/2024 18:38:43 Are You Currently Employed? Yes Information not available 10/24/2024 Have You Had A Flu Shot This Season? No Information not available 10/24/2024 If No, Would You Like A Flu Shot Today? No Information not available 10/24/2024 What Is Your Water Source? City Information not available 10/24/2024 What Is Your Heat Source? Gas Information not available 10/24/2024 What Is Your Current Pack Years? [employer]ormore[employer] Information not available 10/24/2024 What Is Your Relationship Status? Information not available 10/24/2024 Are You Passively Exposed To Smoke? No Information no t available 10/24/2024 How Much Tobacco Do You Smoke? 1 PPD Information not available 10/24/2024 Do You Use Any Illicit Or Recreational Drugs? Yes Information not available 10/24/2024 Have You Recently Traveled Abroad? Yes Information not available 10/24/2024 Do You Or Have You Ever Used Any Other Forms Of Tobacco Or Nicotine? No Information not available 10/24/2024 Sex: Unknown Functional Status None recorded. Mental Status None recorded. Family History Relationship Description Onset Age of this Age Resolved Age Notes LastModified by Organization Details LastModified Time Father No current problems or disability fcuevasgonzal ez Not available 10/24/2024 18:38:06 Mother No current problems or disability fcuevasgonzal ez Not available 10/24/2024 18:38:06 Medical History No medical history recorded. Past Encounters Encounter ID Performer Location Encounter Start Date Encounter Closed Date Diagnosis/Indication Diagnosis SNOMED-CT Code Diagnosis ICD10 Code Diagnosis Note [id number] [facility] [address] [address] 10/01/2020 11:40:45 10/01/2020 15:48:34 [id number] [facility] [address] [address] 08/02/2019 16:29:29 08/02/2019 16:58:59 [id number] [facility] [address] [address] 09/28/2018 12:37:00 09/28/2018 13:56:50 [id number] [facility] [address] [address] 02/14/2018 14:04:27 02/14/2018 14:40:59 [id number] [facility] [address] [place] [address] 08/20/2022 13:09:31 08/20/2022 13:36:16 [id number] [address] [place] [address] 12/06/2021 15:38:43 12/06/2021 17:30:43 [id number] [address] [place] [address] 04/03/2022 16:34:06 04/03/2022 17:19:02 [id number] [address] [place] [address] 02/02/2019 17:40:41 02/02/2019 18:11:09 [id number] [address] [place] [address] 04/11/2019 16:49:13 04/11/2019 17:16:00 [id number] [address] [place] [address] 08/21/2020 13:32:40 08/21/2020 19:45:56 [id number] [address] [place] [address] 7 11/18/2017 18:53:37 11/18/2017 19:43:48 [id number] [facility] [address] [place] [address] 12/15/2019 14:51:38 12/15/2019 16:10:53 [id number] [address] [place] [address] 02/29/2020 19:25:47 02/29/2020 19:50:36 [id number] [address] [place] [address] 04/10/2020 09:59:18 04/10/2020 10:51:39 [id number] [address] [place] [address] 09/19/2018 14:37:52 09/19/2018 15:17:48 [id number] [facility]ouch [address] [address] 10/24/2024 17:58:42 10/24/2024 18:53:27 Rib pain [id number] R07.81 You were seen today for rib pain that is most likely caused by a strain or spasm of the muscles and inflammati onYou can use Arnicare gel topically to help, make sure to stretch to keep the muscles loose as wellWhen you sprain or fracture ribs there is a tendency to NOT breath deeply because of pain. It is very important that you keep your lungs expanded in order to prevent pneumonia. Every even hour while awake do deep breathing exercises, taking deep breaths at least 10 separate times. If you develop a cough or fever see your [facility] or [facility] for further evaluation .Thank you for using [facility] today, please feel free to contact our office if you have any questions or concerns. Health Concerns Section Related Observation LastModified by Organization Detai ls LastModified Time None Recorded Concern Status LastModified by Organization Details LastModified Time None Recorded Advance Directives Directive None Recorded Payers Encounter Date Sequence Insurance Name Policy Number Policy Chavez Covered Member ID Chavez Member ID Guarantor Name 10/01/2020 1 [facility] [id number] Hannah Malhotra [id number] Brent Akhtar 12/06/2021 1 [facility] [id number] Hannah Malhotra [id number] Brent Akhtar 04/03/2022 1 [facility] [id number] Hannah Malhotra [id number] Brent Akhtra 08/20/2022 1 [facility] [id number] Hannah Malhotra [id number] Brent Vazquezendez 10/24/2024 1 [facility] [id number] Hannah Malhotra [id number] Brent Akhtar Notes Date Note Type Note Provider Name and Address Organization Details Recorded Time 10/24/2024 text/html 39 y/o male with about 2 weeks of L side pain, worse with cough, not too bad with deep breaths. Better when sleeping on it , has not taken any medication.Did try a friend's vape that seemed to make him cough a lot recently THAD Couch [address] [place], [address], [place] - [facility] 10/24/2024 18:56:51
[2025-01-08 18:06] LABS: MANUAL DIFF FLAG NO
[2025-01-08 18:15] LABS: Basophils Percent Auto 0.7 % (0-2); Eosinophils Absolute Auto 0.2 X10*3/uL (0.0-0.4); Eosinophils Percent Auto 3.3 % (0-4); Hematocrit 47.6 % (42.0-52.0); Hemoglobin 16.7 g/dl (14.0-18.0); Imm Gran Abs Auto 0.01 X10*3/uL (0.00-0.03); Imm Gran Pct Auto 0.2 % (0.0-0.4); Lymphocytes Absolute Auto 2.4 X10*3/uL (1.2-4.9); Lymphocytes Percent Auto 40.9 % (20-40); Mean Corpuscular HGB Conc 35.1 g/dl (31.0-36.0); Mean Corpuscular Volume 94.1 fL (80.0-98.0); Mean Platelet Volume 9.6 fL (9.4-12.4); Monocytes Absolute Auto 0.5 X10*3/uL (0.1-1.2); Monocytes Percent Auto 8.7 % (2-11); Neutrophils Absolute Auto 2.7 x10*3/uL (2.0-8.3); Neutrophils Percent Auto 46.2 % (45-73); Platelet Count 325 X10*3/uL (160-400); Red Blood Count 5.06 X10*6/uL (4.60-5.80); Red Cell Distribution Width 13.1 % (11.0-16.0); White Blood Count 5.8 X10*3/uL (4.8-10.8)
[2025-01-08 18:26] LABS: Appearance Urine Clear; Color Urine Yellow; Glucose Urine UA Negative (Negative); Leukocyte Esterase Urine Negative (Negative); Nitrite Urine Negative (Negative); Urine Blood Negative (Negative); Urine Ketones Negative (Negative); Urine Protein Negative (Neg-Trace)
[2025-01-08 18:40] LABS: Alanine Aminotransferase 41 U/L (0-40); Albumin Level 4.1 g/dL (3.5-5.0); Alkaline Phosphatase 59 U/L (39-117); Anion Gap 10 (12-20); Aspartate Amino Transferase 29 U/L (5-37); Bilirubin Total 0.6 mg/dL (0.0-1.0); Blood Urea Nitrogen 11 mg/dL (9-16); Calcium 9.4 mg/dL (8.4-10.2); Carbon Dioxide 25 mmol/L (22-29); Chloride 106 mmol/L (96-108); Cholesterol 162 mg/dL (<200); Estimated Glomerular Filt Rate > 60; Glucose Fasting 99 mg/dL (60-99); HDL Cholesterol 34 mg/dL (>40); LDL Cholesterol Calculated 110 mg/dL (<100); Potassium 4.1 mmol/L (3.3-5.1); Sodium 137 mmol/L (135-145); Total Protein 7.4 g/dL (6.5-8.0); Triglycerides 93 mg/dL (<150)
== END 2025-01-08 14:24 | disposition home or self-care (01) ==
LOC: HO.WFDLDS 14:23
PROVIDERS: Nurse Practitioner Family; Visit Provider Family Medicine
DX: Z00.00 Encounter for general adult medical examination without abnormal findings (principal); R74.8 Abnormal levels of other serum enzymes; E78.00 Pure hypercholesterolemia, unspecified; D75.1 Secondary polycythemia
CPT/HCPCS: 36415; 80053; 80061; 81003; 85025

== ENCOUNTER 2025-01-10 14:32 | Outpatient (AMB) | payer OTHER, SELFPAY ==
--- NOTE | 2025-01-10 14:39 | A.OFFPC_ITS ---
Vital Signs 01/10/25 14:41 Height 5 ft 11 in Weight 305 lb 2 oz BMI 42.6 BP 110/80 Blood Pressure Location Rt brachial Position Sitting Respiration 16 Pulse 84 Pulse Source Pulse Oximeter Temp 98.7 F Temp Source Oral Pulse Oximetry (%) 96 Oxygen Delivery Method Room Air Intake Visit Reasons: f/u labs Intake Note: patient is scheduled to follow up on labs Weft Straightener Required: No Allergies No Known Allergies [No Known Allergies*] Allergy (Verified 01/10/25 14:40) Tobacco use date assessed: 03/15/24 Dental Screening Dental Screen Date: 03/15/24 HPI f/u labs HPI Details 39 y/o male presents to f/u HLD, liver e nzymes, weight. Had encouraged lifestyle changes. Liver ultrasound ruled out advanced liver disease. Labs drawn 01/08/25. Reviewed labs with pt. Triglycerides 93. TC 162. LDL 110. HDL low at 34. AST 29. ALT improved from 75 to 51. Pt notes he has been trying to cut back on EtOH intake. He has been trying to eat healthier. REPLACED BY [facility] Medical History Elevated fasting blood sugar Surgical History History of vasectomy History of appendectomy Family History Father No problems noted. Mother No problems noted. Sister No problems noted. Son No problems noted. Daughter No problems noted. 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 Cachorro Bowman, Gayla Dye, Ortega Easley and colleagues, with an educational magali from [employer] Review of Systems Const Denies chills, Denies fatigue, Denies fever(s), Denies headache(s) and Denies weakness ENT Denies dizziness and Denies headache(s) Card Denies dyspnea Resp Denies cough, Denies dyspnea, Denies wheezing and Denies other (shortness of breath) Musc Denies numbness and Denies tingling Neuro Denies dizziness, Denies headache(s), Denies numbness, Denies tingling and Denies weakness Psych Denies anxiety and Denies depression Endo Denies fatigue Aller/Immun Denies wheezing Physical exam (Primary Care) Vital Signs: Last Vital Signs Temp 98.7 F 01/10/25 14:41 Pulse 84 01/10/25 14:41 Resp 16 01/10/25 14:41 BP 110/80 01/10/25 14:41 Pulse Ox 96 01/10/25 14:41 Oxygen Delivery Method Room Air 01/10/25 14:41 BMI result Body Mass Index 42.6 Tobacco/Smoking Status: Tobacco use Status Tobacco use date assessed 03/15/24 01/10/25 14:44 Patient Tobacco Use Status Current everyday Tobacco 01/10/25 14:44 e-Cigarette/Vaping Use Never Used 01/10/25 14:44 Thrive Assessment: Date of Thrive Assessment Date Thrive assessed 03/15/24 01/10/25 14:44 Const General: well developed; No acute distress Nutritional Appearance: well nourished and obese morbidly obese Orientation/consciousness: patient oriented x3 HENMT Head: Yes normocephalic and Yes atraumatic Eyes General: appearance normal, both eyes and all related structures Pupils: Equal, round and reactive pupils present EOM: EOMs intact bilaterally Resp Effort & Inspection: normal respiratory effort Auscultation: clear to auscultation bilaterally Cardio Rate: regular rate Rhythm: regular rhythm Heart sounds: S1 normal heart sound present, S2 normal heart sound present, no gallops, no murmurs and no rubs Neuro General: patient oriented x3 and gait normal Cranial nerves: Yes Equal, round and reactive pupils present Psych Affect: normal affect Coding Level of Care Code Est Pt Level 4 (12401) Diagnoses Elevated LDL cholesterol level E78.00 Elevated liver enzymes R74.8 Low HDL (under 40) E78.6 Morbid obesity with BMI of 40.0-44.9, adult E66.01; Z68.41 Assessment & Plan Assessment & Plan (1) Elevated LDL cholesterol level: Code(s): E78.00 - Pure hypercholesterolemia, unspecified Category: Medical Plan: Still?has?mildly?elevated?LDL?cholesterol?and?mildly?low?HDL Encouraged?weight?loss?and?exercise Will?recheck?again?in?few?months (2) Elevated liver enzymes: Code(s): R74.8 - Abnormal levels of other serum enzymes Category: Medical Plan: Liver?enzymes?much?improved?and?nearly?within?normal?range Encouraged?weight?loss?and?exercise Encouraged?good?hydration. Decrease?alcohol (3) Low HDL (under 40): Code(s): E78.6 - Lipoprotein deficiency Category: Medical Plan: As?above,?increase?exercise (4) Morbid obesity with BMI of 40.0-44.9, adult: Code(s): E66.01 - Morbid (severe) obesity due to excess calories; Z68.41 - Body mass index [BMI] 40.0-44.9, adult Category: Medical Plan: Encouraged?weight?loss Orders: Orders Complete Blood Count Auto Diff Today D75.1 - Secondary polycythemia, Z00.00 - Encounter for general adult medical examination without abnormal findings Lipid Panel Today E78.00 - Pure hypercholesterolemia, unspecified, Z00.00 - Encounter for general adult medical examination without abnormal findings Comprehensive [place]. Panel Fast Today R74.8 - Abnormal levels of other serum enzymes, Z00.00 - Encounter for general adult medical examination without abnormal findings
[2025-01-10 14:41] VITALS: BP 110/80; PULSE 84; RESP 16; TEMP 37.1; O2SAT 96; BMI 42.6
--- OUTSIDE RECORDS SUMMARY | 2025-01-10 16:05 | XMS_ITS | Data Portability ---
Author Organization THAD Perez [facility] [address] Address [address] [place] [address] Care Team Providers Care Blocking Machine Operator Name Role Phone JOEL PATE Primary Care Provider [phone] Assessment No assessment recorded. Plan of Treatment Reminders Order Date Submit Date Provider Last Modified By Organization Details Last Modified Time Details Appointments None recorded. Lab urinalysis , dipstick 2024 025 [email or web address] [facility], [address] [place] [address], [phone], 18:52:37 Referral None recorded. Procedures None recorded. Surgeries None recorded. Imaging None recorded. Medication Orders None recorded. Patient TargetsNo targets recorded. Patient InstructionsNo instructions recorded. Reason for Referral None Reported. Results Created Date Observation Date Name Description Value Unit Range Abnormal Flag Note LastModifiedBy Organization Detail LastModifiedTime 10/24/1910/24/2024 urina lysis , dipst ick Unknown Analyte Normal = light yellow Not Available [facility] [address] [place] [address], [address], 10/24/2024 18:39:41 10/24/1910/24/2024 urina lysis , dipst ick Unknown Analyte Normal = clear Not Available [facility] [address] [place] [address], [address], 10/24/2024 18:39:41 10/24/19 25 10/24/2024 urina lysis , dipst ick Unknown Analyte Normal = negati ve Not Available [facility] [address] [place] [address], [address], 10/24/2024 18:39:41 10/24/19 25 10/24/2024 urina lysis , dipst ick Unknown Analyte Negati ve Not Available [facility] [address] [place] [address], [address], 10/24/2024 18:39:41 10/24/19 25 10/24/2024 urina lysis , dipst ick Unknown Analyte Normal = Negati ve Not Available [facility] [address] [place] [address], [address], 10/24/2024 18:39:41 10/24/19 25 10/24/2024 urina lysis , dipst ick Unknown Analyte Small Not Available [facility] [address] [place] [address], [address], 10/24/2024 18:39:41 10/24/19 25 10/24/2024 urina lysis , dipst ick Unknown Analyte Normal = Negati ve Not Available [facility] [address] [place] [address], [address], 10/24/2024 18:39:41 10/24/19 25 10/24/2024 urina lysis , dipst ick Unknown Analyte Trace Not Available [facility] [address] [place] [address], [address], 10/24/2024 18:39:41 10/24/19 25 10/24/2024 urina lysis , dipst ick Unknown Analyte Normal = 1.010, 1.015, 1.020 Not Available [facility] [address] [place] [address], [address], 10/24/2024 18:39:41 10/24/19 25 10/24/2024 urina lysis , dipst ick Unknown Analyte Normal = Negati ve Not Available [facility] [address] [place] [address], [address], 10/24/2024 18:39:41 10/24/19 25 10/24/2024 urina lysis , dipst ick Unknown Analyte Negati ve Not Available [facility] [address] [place] [address], [address], 10/24/2024 18:39:41 10/24/19 25 10/24/2024 urina lysis , dipst ick Unknown Analyte Normal = 6.5, 7.0, 7.5, 8.0 Not Available [facility] [address] [place] [address], [address], 10/24/2024 18:39:41 10/24/19 25 10/24/2024 urina lysis , dipst ick Unknown Analyte Normal = Negati ve Not Available [facility] [address] [place] [address], [address], 10/24/2024 18:39:41 10/24/19 25 10/24/2024 urina lysis , dipst ick Unknown Analyte 30 mg/dL Not Available [facility] [address] [place] [address], [address], 10/24/2024 18:39:41 10/24/19 25 10/24/2024 urina lysis , dipst ick Unknown Analyte Normal = Negati ve Not Available [facility] [address] [place] [address], [address], 10/24/2024 18:39:41 10/24/19 25 10/24/2024 urina lysis , dipst ick Unknown Analyte Negati ve Not Available [facility] [address] [place] [address], [address], 10/24/2024 18:39:41 10/24/19 25 10/24/2024 urina lysis , dipst ick Unknown Analyte Normal = Negati ve Not Available [address] [place] [address] [place] [address], [address], 10/24/2024 18:39:41 10/24/19 25 10/24/2024 urina lysis , dipst ick Unknown Analyte Trace Not Available [address] [place] [address], [address], 10/24/2024 18:39:41 10/24/19 25 10/24/2024 urina lysis , dipst ick Unknown Analyte Yellow Not Available [address], [address], 10/24/2024 18:39:41 10/24/19 25 10/24/2024 urina lysis , dipst ick Unknown Analyte Clear Not Available [address] [place] [address], [address], 10/24/2024 18:39:41 10/24/19 25 10/24/2024 urina lysis , dipst ick Unknown Analyte 1.030 Not Available [address] [place] [address], [address], 10/24/2024 18:39:41 10/24/19 25 10/24/2024 urina lysis , dipst ick Unknown Analyte 6.5 Not Available [facility], [address], 10/24/2024 18:39:41 10/24/19 25 10/24/2024 urina lysis , dipst ick Unknown Analyte Normal = 0.2, 1.0 Not Available [facility] [address] [place] [address], [address], 10/24/2024 18:39:41 10/24/1910/24/2024 urina lysis , dipst ick Unknown Analyte 0.2 E[facility] L Not Available _ [facility] [address] [place], [address], 10/24/2024 18:39:41 Result Notes None recorded. Problems Name Problem SNOMED Code Status Onset Date Resolution Date Notes Provider Name and Address Organization Details Recorded Time Asthma 211963290 Active THAD Key - [facility] 10/24/2024 [...] Last Updated DateTime 180.34 cm 41.1 kg/m2 824745. 75 g 100 % 100 % 5 [...] SNOMED-CT Code Diagnosis ICD10 Code Diagnosis Note [id number] [facility] [address] [address] 10/01/2020 11:40:45 10/01/2020 15:48:34 [id number] [facility] [facility] [address] [address] 08/02/2019 16:29:29 08/02/2019 16:58:59 [id number] [facility] [address] [address] 09/28/2018 12:37:00 09/28/2018 13:56:50 [id number] [facility] [address] [address] 02/14/2018 14:04:27 02/14/2018 14:40:59 [id number] [address] [place] [address] 08/20/2022 13:09:31 08/20/2022 13:36:16 [id number] [address] [place] [address] 12/06/2021 15:38:43 12/06/2021 17:30:43 [id number] [address] [place] [address] 04/03/2022 16:34:06 04/03/2022 17:19:02 [id number] [address] [place] [address] 02/02/2019 17:40:41 02/02/2019 18:11:09 [id number] [address] [place] [address] 04/11/2019 16:49:13 04/11/2019 17:16:00 [id number] [address] [place] [address] 08/21/2020 13:32:40 08/21/2020 19:45:56 [id number] [address] [place] [address] 7 11/18/2017 18:53:37 11/18/2017 19:43:48 [id number] [facility] [address] [place] [address] 12/15/2019 14:51:38 12/15/2019 16:10:53 [id number] [address] [place] [address] 02/29/2020 19:25:47 02/29/2020 19:50:36 [id number] [address] [place] [address] 7 04/10/2020 09:59:18 04/10/2020 10:51:39 [id number] [address] [place] [address] 09/19/2018 14:37:52 09/19/2018 15:17:48 [id number] [facility] Couch [address] [address] 10/24/2024 17:58:42 10/24/2024 18:53:27 Rib pain [id number] R07.81 You were seen today for rib [...] for further evaluation .Thank you for using [facility] today, please feel free to contact our [...] Chavez Member ID Guarantor Name 10/01/2020 1 [facility] [id number] Hannah Malhotra [id number] Brent Akhtar 12/06/2021 1 [facility] [id number] Hannah Malhotra [id number] Brent Akhtar 04/03/2022 1 [facility] [id number] Hannah Malhotra [id number] Brent Akhtar 08/20/2022 1 [facility] [id number] Hannah Malhotra [id number] Brent Vazquezendez 10/24/2024 1 [facility] [id number] Hannah Malhotra [id number] Brent Akhtar Notes Date Note Type Note [...] THAD Couch [address] [place], [address], [place] - [facility] 10/24/2024 18:56:51
--- OUTSIDE RECORDS SUMMARY | 2025-01-10 16:05 | XMS_ITS | Continuity of Care Document ---
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 It does not include entries that were removed or entered in error. Problem Status Onset Date Problem Type Date of Resolution Comments Source Asthma, unspecified Active Condition [facility] [place] [facility] Chronic post-traumatic stress disorder following combat (SNOMED CT 447812144) Active Condition [facility] [place] [facility] Lack of Housing (ICD-9-CM V60.0) Active Condition [facility] [place] [facility] Rotator cuff (capsule) sprain or strain (ICD-9-CM 840.4) Inactive Condition 06/27/2011 [facility] [place] [facility] Allergies, Adverse Reactions, Alerts Combined list of allergies from Department of Defense and Veterans Affairs facilities. It does not include entries that were removed or entered in error. Substance Category Reaction Severity Reaction type Status Date Reported Comments Source CATS Propensity to adverse reaction (finding) ITCHING,W ATERING EYES, HIVES, Eruption active 5 [facility] [place] [facility] DOGS Propensity to adverse reaction (finding) ITCHING,W ATERING EYES, HIVES, Eruption [facility] [place] [facility] Immunizations Combined list of available immunizations from the Department of Defense and Veterans Affairs facilities. 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 Social History Type Response Date Comment Sour e Tobacco smoking status MOIS V1-PT NOT INTERESTED IN QUIT TOBACCO USE 12/02/2015 ERNESTO History of tobacco use CURRENT SMOKER 11/18/2015 1/2 pack a day NASSAU History of tobacco use QUIT TOBACCO USE > 7 YEARS AGO 06/27/2011 Patient quit ten years ago. NASSAU History of tobacco use QUIT TOBACCO USE IN PAST YEAR 02/09/2006 NASSAU History of tobacco use LIFETIME NON-TOBACCO USER 11/24/2005 does not smoke NASSAU
== END 2025-01-10 14:58 | disposition home or self-care (01) ==
LOC: HO.HMCFM 14:33
PROVIDERS: PCP Family Medicine; Visit Provider Family Medicine
DX: E78.00 Pure hypercholesterolemia, unspecified (principal); R74.8 Abnormal levels of other serum enzymes; E78.6 Lipoprotein deficiency; E66.01 Morbid (severe) obesity due to excess calories; Z68.41 Body mass index [BMI] 40.0-44.9, adult

== ENCOUNTER → 2025-01-10 14:32 | Outpatient (BNVA) | payer OTHER, SELFPAY | PROVIDERS: PCP Family Medicine; Visit Provider Family Medicine ==

== ENCOUNTER 2025-03-24 14:59 | Outpatient (AMB) | payer OTHER, SELFPAY ==
--- NOTE | 2025-03-24 15:08 | MHC.PC.OV ---
Vital Signs 03/24/25 15:12 Height 5 ft 11 in Weight 300 lb 6 oz BMI 41.9 BP 136/76 Blood Pressure Location Lt brachial Position Sitting Respiration 13 Pulse 82 Pulse Source Pulse Oximeter Temp 97.6 F Temp Source Oral Pulse Oximetry (%) 97 Oxygen Delivery Method Room Air Intake Visit Reasons: Physical Dr. Jennifer trejo. - see comments Intake Note: CPE Quoter Required: No Allergies No Known Allergies [No Known Allergies*] Allergy (Verified 03/24/25 15:24) Medication List - Last Reconciled 03/24/25 by DAVIS Costa- albuterol sulfate 90 mcg/actuation (Ventolin HFA) 2 puffs inhalation Q4-6H PRN 30 days budesonide-formoterol 160-4.5 mcg/actuation (Symbicort) 2 puffs inhalation Q12H 30 days Tobacco use date assessed: 03/24/25 Dental Screening Dental Screen Date: 03/24/25 Did you have a dental visit in the last 12 months?: No Did you have a dental problem in the last 6 months where you did not have access to dental care?: No Was dental information given to patient?: Yes HPI HPI Comments History of Present Illness Details History of Present Illness - The patient is a 39-year-old male presenting for an annual wellness visit. - History of Post-Traumatic Stress Disorder with self-medication using alcohol. - High alcohol intake with daily consumption of shots and beers. - Reports loose stools; gastrointestinal symptoms noted. - Smokes regularly, noted continuation of tobacco use. - Experience spots in vision that come and go, including perception of floaters. - Skin tags on neck require dermatological attention. - No tetanus vaccine documentation; update discussed. Past Surgical History - No recent surgeries reported. Family History - No changes in family medical history reported. 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 - High alcohol use reported; uses social interactions for stress management. - Engaged in physical activity at the gym. - Smoking reported Health Maintenance - Referral to dermatology for skin tags discussed. - Tetanus (Tdap) vaccine was offered and explained; decision pending. - Screen for prostate cancer with lab add-on discussed for Dr. Mejia. - Referral for eye examination concerning potential cataracts planned. - Follow-up for gastrointestinal evaluation and vision disturbance referrals. - Current labs indicate need for repeat analysis, focus on hepatic enzymes. Review of Systems - Psychiatric: Reports PTSD, anxiety, depression. Denies counseling medications but reports therapy. - Gastrointestinal: Reports loose stools, abdominal cramping. No significant nausea or vomiting noted. - Eyes: Reports visual floaters; possible cataracts noted by previous eye evaluations. - Skin: Reports presence of skin tags on neck. - Hematologic/Immunologic: Uncertain tetanus vaccination status; no allergic reactions. Physical Exam General: Well developed, well nourished, in no acute distress. Appears stated age. Head: Normocephalic, atraumatic. Eyes: Pupils are equal, round and reactive to light and accommodation. Conjunctivae are clear. Vision grossly normal, but patient reports seeing spots and has been referred for an eye exam. Ears: TMs clear AU, EACS WNL Nose: Patent, without discharge. Neck: Supple, no adenopathy or thyromegaly. Patient has skin tags on the neck and has been referred to dermatology. Lungs: Clear to auscultation bilaterally. No rales, rhonchi or wheeze noted. Good air flow in all [place]. Patient takes albuterol and Symbicort for breathing. Heart: Regular rate and rhythm. No murmurs, click, rubs or gallops are noted. Abdomen: Bowel sounds present in all quadrants. The abdomen is soft, nontender, with no masses or organomegaly noted. No hernias are noted. Patient reports loose stools and occasional cramps, referred to GI specialist. : Deferred. 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 Extremities: No clubbing, cyanosis nor edema is noted. Neurologic: Gait and station normal. Cranial Nerves 2-12 intact. Motor strength grossly symmetrical and intact. No sensory loss. Balance normal. Skin: No rashes, ulcers, or lesions noted. Turgor is good. Skin color is good. Hair and nails are without abnormalities. Psych: Normal eye contact, affect and mood appropriate, and normal interactions. Patient is alert and appropriate to context. Patient reports PTSD, anxiety, and depression, and is seeing a therapist. Results - Labs: Previous labs reviewed with Dr. Mejia; follow-up scheduled for hepatic enzyme concerns. - Diagnostics: A prostate cancer screening lab planned during upcoming appointment. Discussion Notes I discussed the patient's ongoing symptoms and lifestyle factors contributing to his health, such as alcohol use disorder, PTSD, anxiety, and depression. We also addressed gastrointestinal symptoms, including loose stools and abdominal cramping, and planned a referral for further evaluation. We talked about health maintenance, including the need for a tetanus booster, screening for prostate cancer, and referral to dermatology for skin tag removal. I offered supportive measures outside the [employer] system for mental and social health assistance. A follow-up was confirmed for repeat liver function studies. The patient was informed about the benefits of regular exercise in managing muscle mass and overall health. Assessment and Plan 1. Post-Traumatic Stress Disorder - Continue therapy at [facility]. - Explore external support resources. 2. Alcohol Use Disorder - Reduce alcohol intake. - Consider support services, offered and declined [facility] referral 3. Skin Tags - Dermatology referral. 4. Gastrointestinal Symptoms - GI referral for stool issues. 5. Smoking - Cessation advised 6. Vision - Vision referral for floater evaluation. 7. Preventative Care - Tetanus booster offered. - Schedule labs for prostate screening. Patient Instructions - Look out for a call to schedule your dermatology and GI appointments. - Consider support services for alcohol use. - Maintain water intake; minimize alcohol consumption. - For vision changes or concerns, the eye referral is planned. - Follow up with Dr. Mejia for lab results and further instructions. Consent I discussed the need for a tetanus booster vaccine (Tdap) with the patient, explaining the protective benefits against tetanus, pertussis, and diphtheria. I noted it as a routine vaccine required every ten years, emphasizing its necessity given his lack of recent vaccination records. I explained the potential side effects, such as arm soreness, and addressed his concerns with receiving vaccines due to past experiences in the . The patient consented to further consideration and will notify if he decides to proceed. Patient was informed and verbally consented to the use of an ambient scribe for clinic note documentation during this visit. An additional 30 minutes was spent addressing the problem(s) noted at todays visit. This includes time spent before the visit reviewing the chart, time spent during the visit, and time spent after the visit on documentation reviewing laboratory results, diagnostic imaging, medications, performing a medically necessary evaluation, counseling on diagnoses, care coordination, ordering appropriate tests, ordering appropriate medications, review of tests performed by other providers, reporting test results with the patient, communication with other healthcare providers. [facility] Medical History Elevated fasting blood sugar Surgical History History of vasectomy History of appendectomy Family History Father No problems noted. Mother No problems noted. Sister No problems noted. Son No problems noted. Daughter No problems noted. 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 1. Little interest or pleasure in doing things: more than half the days 2. Feeling down, depressed, or hopeless: more than half the days 3. Trouble falling or staying asleep, or sleeping too much: more than half the days 4. Feeling tired or having little energy: more than half the days 5. Poor appetite or overeating: more than half the days 6. Feeling bad about yourself - or that you are a failure or have let yourself or your family down: more than half the days 7. Trouble concentrating on things, such as reading the newspaper or watching television: more than half the days 8. Moving or speaking so slowly that other people could have noticed. Or the opposite - being so fidgety or restless that you have been moving around a lot more than usual: more than half the days 9. Thoughts that you would be better off or of hurting yourself in some way: not at all Total score: 16 Depression Screening Interpretation: Positive Depression Screening Follow-up: Existing condition and In treatment Depression Screening Done: Yes 68957 - PHQ-9 Billing: Yes Source: Developed by Drs. Cachorro Bowman, Gayla Dye, Ortega Easley and colleagues, with an educational magali from [facility]. Thrive Questionnaire Date Thrive assessed: 03/24/25 I am a: Patient What is your living situation today?: I have a steady place to live Within the past 12 months, did the food you bought not last and you didn't have the money to get more?: Never true Within the past 12 months, did you worry whether your food would run out before you got money to buy more?: Never true Do you have trouble paying for medicines?: No Do you have trouble getting transportation to medical appointments?: No Do you have trouble paying your heating and electricity bill?: No Do you have trouble taking care of your child, family member or friend?: No Do you have trouble with day-to-day activities such as bathing, preparing meals, shopping, managing finances, etc.?: No Are you currently unemployed and looking for a job?: No Are you interested in more education?: No THRIVE Score: 0 AUDIT C Alcohol Use Questionnaire (AUDIT-C) 1. How often do you have a drink containing alcohol?: Never Total Score: 0 Score Reviewed/Action Taken: Yes KATHLEEN-7 AMB Questionnaire KATHLEEN-7 Date KATHLEEN - 7 assessed: 03/24/25 Feeling nervous, anxious, or on edge: 2 = More than half the days Not being able to stop or control worryin = More than half the days Worrying too much about different things: 2 = More than half the days Trouble relaxin = More than half the days Being so restless that it is hard to sit still: 2 = More than half the days Becoming easily annoyed or irritable: 2 = More than half the days Feeling afraid as if something awful might happen: 2 = More than half the days Total KATHLEEN-7 score (0-4 normal; 5-9 mild; 10-14 moderate; 15-21 severe): 14 Source: Developed by Drs. Cachorro Bowman, Gayla Dye, Ortega Easley and colleagues, with an educational magali from [facility]. KATHLEEN-7 Assessment Billing KATHLEEN-7 Assessment Tool: KATHLEEN-7 Assessment 20272 Physical exam (Primary Care) Vital Signs: Last Vital Signs Temp 97.6 F 03/24/25 15:12 Pulse 82 03/24/25 15:12 Resp 13 03/24/25 15:12 BP 136/76 03/24/25 15:12 Pulse Ox 97 03/24/25 15:12 Oxygen Delivery Method Room Air 03/24/25 15:12 BMI result Body Mass Index 41.9 BMI Assessment/Plan discussion: High BMI High, discussed plan: lifestyle, weight reduction and alcohol moderation Tobacco/Smoking Status: Tobacco use Status Tobacco use date assessed 03/24/25 03/24/25 15:14 Patient Tobacco Use Status Current everyday Tobacco 03/24/25 15:14 e-Cigarette/Vaping Use Never Used 03/24/25 15:14 Are you ready to quit: No Tobacco cessation counseling provided: Yes Items discussed: Nicotine replacement, QuitWorks and Other Relapse Prevention: discussed the importance of a supportive environment, discussed extending NRT, discussed negative mood or depression after quitting, weight gain after smoking is common and discussed dietary, exercise and/or lifestyle changes Number of minutes spent counselin CPT code: 15501 - 4-10 Minutes PHQ-9: PHQ-9 Score PHQ-9: Total score 16 03/24/25 15:56 Depression Screening Interpretation: Positive Depression Screening Follow-up: Existing condition and In treatment Thrive Assessment: Date of Thrive Assessment Date Thrive assessed 03/24/25 03/24/25 15:14 Immunizations Boostrix Tdap 2.5 Lf unit-8 mcg-5 Lf/0.5 mL intramuscular syringe Performing Provider: GIL Costa Performing Location: [facility] Administered by: Sharri Benitez MA on 03/24/25 15:56 Dose Route Admin Location Dispensed Lot Number Expiration Date [facility] [employer] 0.5 mL IM Right Deltoid 0.5 mL [id number] 06/04/27 [id number] shoply VIS Given Date VIS Provided VIS Publication Date 03/24/25 Single Vaccine 21 Eligibility Eligibility Date Funding Source Not [facility] Eligible 03/24/25 Private Coding Level of Care Code Est Pt Level 4 (91507) Est Pt Prev Care 40-64y(82318) Diagnoses Adult general medical exam Z00.00 Skin tag L91.8 Laboratory tests ordered as part of a complete physical exam (CPE) Z00.00 Uncomplicated alcohol dependence F10.20 Substance use status: uncomplicated KATHLEEN (generalized anxiety disorder) F41.1 Moderate episode of recurrent major depressive disorder F33.1 Major depression episode severity: moderate PTSD (post-traumatic stress disorder) F43.10 Smoking F17.200 Asthma J45.909 Asthma persistence: intermittent Asthma complication type: uncomplicated Elevated LDL cholesterol level E78.00 Elevated liver enzymes R74.8 Low HDL (under 40) E78.6 Morbid obesity with BMI of 40.0-44.9, adult E66.01; Z68.41 Blurred vision H53.8 Need for Tdap vaccination Z23 Additional Codes KATHLEEN-7 Assessment Billing - KATHLEEN-7 Assessment Tool: KATHLEEN-7 Assessment 53524 ([id number]) PHQ-9 - 58258 - PHQ-9 Billing: Yes ([id number]) Vital Signs *Quality* - CPT code: 44443 - 4-10 Minutes ([id number]) Assessment & Plan Assessment & Plan (1) Adult general medical exam: Onset Date: ~03/24/25 Code(s): Z00.00 - Encounter for general adult medical examination without abnormal findings Category: Medical (2) Skin tag: Code(s): L91.8 - Other hypertrophic disorders of the skin Category: Medical (3) Laboratory tests ordered as part of a complete physical exam (CPE): Code(s): Z00.00 - Encounter for general adult medical examination without abnormal findings Category: Medical (4) EtOH dependence: Code(s): F10.20 - Alcohol dependence, uncomplicated Category: Medical Qualifiers: Substance use status: uncomplicated Qualified Code(s): F10.20 - Alcohol dependence, uncomplicated (5) KATHLEEN (generalized anxiety disorder): Code(s): F41.1 - Generalized anxiety disorder Category: Medical (6) MDD (major depressive disorder), recurrent episode: Code(s): F33.9 - Major depressive disorder, recurrent, unspecified Category: Medical Qualifiers: Major depression episode severity: moderate Qualified Code(s): F33.1 - Major depressive disorder, recurrent, moderate (7) PTSD (post-traumatic stress disorder): Code(s): F43.10 - Post-traumatic stress disorder, unspecified Category: Medical (8) Smoking: Comment: Smoking Cessation How to Quit There are a lot of ways to quit smoking and many resources to help you. Family members, friends, and co-workers may be supportive or encouraging, but to be successful the desire and commitment to quit must be your own. Most people who have been able to successfully quit smoking made at least one unsuccessful attempt in the past. Try not to view past attempts to quit as failures, but rather as learning experiences. Stopping smoking or using smokeless tobacco is difficult, but anyone can do it. Know the symptoms to expect when you stop. Common symptoms include: ? An intense craving for nicotine ? Anxiety, tension, restlessness, frustration, or impatience ? Difficulty concentrating ? Drowsiness or trouble sleeping, as well as bad dreams and nightmares ? Drowsiness and trouble sleeping ? Headaches ? Increased appetite and weight gain ? Irritability or depression How severe your symptoms are depends on how long you smoked and how many cigarettes you smoked each day. Feel ready to quit? ? First and foremost, set a quit date and quit completely on that day. Before your quit date, you may begin reducing your cigarette use. But remember, there is no safe level of cigarette smoking. ? List the reasons why you want to quit. Include both short- and long-term benefits. ? Identify the times you are most likely to smoke. For example, do you tend to smoke when feeling stressed or down? When out at night with friends? While drinking coffee or alcohol? When bored? While driving? Right after a meal or sex? During a work break? While watching TV or playing cards? When you are with other smokers? ? Let all of your friends, family, and co-workers know of your plan to stop smoking and your quit date. Just being aware that they know what you're going through can be helpful, especially when you are grumpy. ? Get rid of all your cigarettes just before the quit date, and clean out anything that smells like smoke, such as clothes and furniture. Make a plan about what you will do instead of smoking at those times when you are most likely to smoke. ? Be as specific as possible. For example, drink tea instead of coffee -- tea may not trigger the desire for a cigarette. Or, take a walk when you feel stressed. ? Remove ashtrays and cigarettes from the car. Place pretzels or hard candies there instead. Pretend-smoke with a straw. ? Find activities that focus your hands and mind but are not taxing or fattening. Computer games, solitaire, knitting, sewing, and crossword puzzles may help. ? If you normally smoke after eating, find other ways to end a meal. Play a tape or CD, eat a piece of fruit, get up and make a phone call, or take a walk (a good distraction that also laboy calories). Make other changes in your lifestyle. ? Change your daily schedule and habits. Eat at different times or eat several small meals instead of three large ones. Sit in a different chair or even a different room. ? Satisfy your oral habits by eating celery or other low-calorie snack, chewing sugarless gum, or sucking on a cinnamon stick. ? Go to public places and restaurants where smoking is prohibited or restricted. ? Eat regular meals and don't eat too much candy or sweet things. ? Get more exercise. Take walks or ride a bike. Exercise helps relieve the urge to smoke. Set short-term quitting goals and reward yourself when you meet them. ? Every day, put the money you normally spend on cigarettes in a jar. Then buy something pleasurable after a period of time. ? Try not to think about all the days ahead you will need to avoid smoking. Take it one day at a time. ? Even one puff or one cigarette will make your desire for more cigarettes even stronger. However, it is normal to make mistakes. So even if you have one cigarette, you don't need to take the next one. Other tips to help you quit smoking and stick to it: ? Enroll in a smoking cessation program (hospitals, health departments, community centers, and work sites often offer programs). Learn about self-hypnosis or other techniques. ? Ask your health care provider about prescription medications that are safe and appropriate for you. ? Find out about nicotine patches, gum, and sprays. The [place] [employer]'s web site -- www.cancer.org -- is an excellent resource for smokers who are trying to quit, and the [employer] [place] [employer] can help some smokers kick the habit. Above all, don't get discouraged if you aren't able to quit smoking the first time. Nicotine addiction is a hard habit to break. Try something different next time. Develop new strategies, and try again. Many people take several attempts to finally kick the habit. Code(s): F17.200 - Nicotine dependence, unspecified, uncomplicated Category: Social Hx (9) Asthma: Code(s): J45.909 - Unspecified asthma, uncomplicated Category: Medical Qualifiers: Asthma persistence: intermittent Asthma complication type: uncomplicated (10) Elevated LDL cholesterol level: Code(s): E78.00 - Pure hypercholesterolemia, unspecified Category: Medical (11) Elevated liver enzymes: Code(s): R74.8 - Abnormal levels of other serum enzymes Category: Medical (12) Low HDL (under 40): Code(s): E78.6 - Lipoprotein deficiency Category: Medical (13) Morbid obesity with BMI of 40.0-44.9, adult: Code(s): E66.01 - Morbid (severe) obesity due to excess calories; Z68.41 - Body mass index [BMI] 40.0-44.9, adult Category: Medical (14) Blurred vision: Code(s): H53.8 - Other visual disturbances Category: Medical (15) Need for Tdap vaccination: Code(s): Z23 - Encounter for immunization Category: Medical Plan . Orders: Orders PSA, Ultra Sensitive Today Z00.00 - Encounter for general adult medical examination without abnormal findings TDaP Immunization Today Z23 - Encounter for immunization Referrals Dermatology Referral L91.8 - Other hypertrophic disorders of the skin Ophthalmology Referral H53.8 - Other visual disturbances Gastroenterology Referral R19.7 - Diarrhea, unspecified Patient Instructions: Health screenings for men You should visit your health care provider regularly, even if you feel healthy. The purpose of these visits is to: Screen for medical issues Assess your risk for future medical problems Encourage a healthy lifestyle Update vaccinations and other preventive care services Help you get to know your provider in case of an illness Information Even if you feel fine, you should still see your provider for regular checkups. These visits can help you avoid problems in the future. For example, the only way to find out if you have high blood pressure is to have it checked regularly. High blood sugar and high cholesterol level also may not have any symptoms in the early stages. Simple blood tests can check for these conditions. There are specific times when you should see your provider or receive specific health screenings. The [place] Preventive Services Task Force publishes a list of recommended screenings. Below are screening guidelines for men ages 40 to 64. BLOOD PRESSURE SCREENING Have your blood pressure checked at least once every year. Watch for blood pressure screenings in your area. Ask your provider if you can stop in to have your blood pressure checked. Ask your provider if you need your blood pressure checked more often if: You have diabetes, heart disease, kidney problems, or are overweight or have certain other health conditions You have a first-degree relative with high blood pressure You are Black Your blood pressure top number is from 120 to 129 mm Hg, or the bottom number is from 70 to 79 mm Hg If the top number is 130 mm Hg or greater or the bottom number is 80 mm Hg or greater, this is considered stage 1 hypertension. Schedule an appointment with your provider to learn how you can lower your blood pressure. Effects of age on blood pressure CHOLESTEROL SCREENING Cholesterol screening should begin at age 35 for men with no known risk factors for coronary heart disease. Repeat cholesterol screening should take place: Every 5 years for men with normal cholesterol levels More often if changes occur in lifestyle (including weight gain and diet) More often if you have diabetes, heart disease, kidney problems, or certain other conditions COLORECTAL CANCER SCREENING If you are under age 45, talk to your provider about getting screened. You may need to be screened if you have a strong family history of colon cancer or polyps. Screening may also be considered if you have risk factors such as a history of inflammatory bowel disease or polyps. If you are age 45 to 75, you should be screened for colorectal cancer. There are several screening tests available: A stool-based fecal occult blood (gFOBT) or fecal immunochemical test (FIT) every year A stool sDNA test every 1 to 3 years Flexible sigmoidoscopy every 5 years or every 10 years with stool testing FIT done every year CT colonography (virtual colonoscopy) every 5 years Colonoscopy every 10 years You may need a colonoscopy more often if you have risk factors for colorectal cancer, such as: Ulcerative colitis A personal or family history of colorectal cancer A history of growths in your colon called adenomatous polyps DENTAL EXAM Go to the dentist once or twice every year for an exam and cleaning. Your dentist will evaluate if you have a need for more frequent visits. DIABETES SCREENING All adults who do not have risk factors for diabetes should be screened starting at age 35 and repeated every 3 years. If you have other risk factors for diabetes, such as a first degree relative with diabetes, overweight or obesity, high blood pressure, prediabetes, or a history of heart disease, you may be tested more often. If you are overweight and have other risk factors, such as high blood pressure and are planning to become , screening is recommended. EYE EXAM Have an eye exam every 2 to 4 years ages 40 to 54 and every 1 to 3 years ages 55 to 64. Your provider may recommend more frequent eye exams if you have vision problems or glaucoma risk. Have an eye exam that includes an examination of your retina (back of your eye) at least every year if you have diabetes. IMMUNIZATIONS Commonly needed vaccines include: Flu shot: get one every year COVID-19 vaccine: ask your provider what is best for you Tetanus-diphtheria and acellular pertussis (Tdap) vaccine: have as one of your tetanus-diphtheria vaccines if you did not receive it as an adolescent Tetanus-diphtheria: have a booster (or Tdap) every 10 years Varicella vaccine: receive 2 doses if you never had chickenpox or the varicella vaccine and were born in 1979 or after Hepatitis B vaccine: receive 2, 3, or 4 doses, depending on your exact circumstances, if you did not receive these as a child or adolescent, until age 59 Shingles (herpes zoster) vaccine: at or after age 50 Ask your provider if you should receive other immunizations, especially if you have certain medical conditions, such as diabetes or are at increased risk for some diseases such as pneumonia. INFECTIOUS DISEASE SCREENING Screening for hepatitis C: all adults ages 18 to 79 should get a one-time test for hepatitis C. Screening for human immunodeficiency virus (HIV): all people ages 15 to 65 should get a one-time test for HIV. Depending on your lifestyle and medical history, you may need to be screened for infections such as syphilis, chlamydia, and other infections. LUNG CANCER SCREENING You should have an annual screening for lung cancer with low-dose computed tomography (LDCT) if: You are age 50 to 80 years AND You have a 20 pack-year smoking history AND You currently smoke or have quit within the past 15 years OSTEOPOROSIS SCREENING If you are age 50 to 64 and have risk factors for osteoporosis, you should discuss screening with your provider. Risk factors can include long-term steroid use, low body weight, smoking, heavy alcohol use, having a fracture after age 50, or a family history of hip fracture or osteoporosis. Osteoporosis PHYSICAL EXAM All adults should visit their provider from time to time, even if they are healthy. The purpose of these visits is to: Screen for diseases Assess risk of future medical problems Encourage a healthy lifestyle Update vaccinations and other preventive care services Maintain a relationship with a provider in case of an illness Your height, weight, and body mass index (BMI) should be checked at every exam. During your exam, your provider may ask you about: Depression and anxiety Diet and exercise Alcohol and tobacco use Safety, such as use of seat belts and smoke detectors Your medicines and risk for interactions PROSTATE CANCER SCREENING If you're 55 through 69 years old, before having the test, talk to your provider about the pros and cons of having a PSA test. Ask about: Whether screening decreases your chance of dying from prostate cancer. Whether there is any harm from prostate cancer screening, such as side effects from testing or overtreatment of cancer when discovered. Whether you have a higher risk of prostate cancer than others. If you are age 55 or younger, screening is not generally recommended. You should talk with your provider about if you have a higher risk for prostate cancer. Risk factors include: Having a family history of prostate cancer (especially a brother or father) Being If you choose to be tested, the PSA blood test is repeated over time (yearly or less often), though the best frequency is not known. Prostate examinations are no longer routinely done on men with no symptoms. Prostate cancer SKIN EXAM Your provider may check your skin for signs of skin cancer, especially if you're at high risk. People at high risk include those who have had skin cancer before, have close relatives with skin cancer, or have a weakened immune system. TESTICULAR EXAM The US Preventive Services Task Force (USPSTF) now recommends against performing testicular self-exams. Doing testicular self-exams has been shown to have little to no benefit.
[2025-03-24 15:12] VITALS: BP 136/76; PULSE 82; RESP 13; TEMP 36.4; O2SAT 97; BMI 41.9
== END 2025-03-24 15:59 | disposition home or self-care (01) ==
LOC: HO.HMCFM 14:59
PROVIDERS: PCP Family Medicine; Visit Provider Nurse Practitioner Family
DX: Z00.00 Encounter for general adult medical examination without abnormal findings (principal); L91.8 Other hypertrophic disorders of the skin; F10.20 Alcohol dependence, uncomplicated; E66.01 Morbid (severe) obesity due to excess calories; Z68.41 Body mass index [BMI] 40.0-44.9, adult; F33.1 Major depressive disorder, recurrent, moderate; F41.1 Generalized anxiety disorder; F43.10 Post-traumatic stress disorder, unspecified; F17.200 Nicotine dependence, unspecified, uncomplicated; J45.909 Unspecified asthma, uncomplicated; E78.00 Pure hypercholesterolemia, unspecified; Z23 Encounter for immunization

== ENCOUNTER → 2025-03-24 14:59 | Outpatient (BNVA) | payer OTHER, SELFPAY | PROVIDERS: PCP Family Medicine; Visit Provider Nurse Practitioner Family | DX: Z00.00 Encounter for general adult medical examination without abnormal findings (principal); L91.8 Other hypertrophic disorders of the skin; F17.210 Nicotine dependence, cigarettes, uncomplicated; F10.20 Alcohol dependence, uncomplicated; F44.1 Dissociative fugue; F33.1 Major depressive disorder, recurrent, moderate; F43.10 Post-traumatic stress disorder, unspecified; J45.909 Unspecified asthma, uncomplicated; E78.00 Pure hypercholesterolemia, unspecified; R74.8 Abnormal levels of other serum enzymes; E78.6 Lipoprotein deficiency; E66.01 Morbid (severe) obesity due to excess calories; H53.8 Other visual disturbances; Z23 Encounter for immunization; Z68.41 Body mass index [BMI] 40.0-44.9, adult | CPT/HCPCS: 90471; 90715; 96127 ==

== ENCOUNTER 2025-04-14 15:48 | Outpatient (REF) | payer OTHER, SELFPAY ==
--- OUTSIDE RECORDS SUMMARY | 2025-04-14 15:53 | XMS_ITS | Data Portability ---
Author Organization THAD Perez s, [address] Address [address] [place] [address] Care Team Providers Care Land Lease Information Clerk Name Role Phone JOEL PATE Primary Care Provider Assessment No assessment recorded. Plan of Treatment Reminders Order Date Submit Date Provider Last Modified By Organization Details Last Modified Time Details Appointments None recorded. Lab urinalysis , dipstick [email or web address] [facility], [address] [place] [address], [phone], 18:52:37 Referral None recorded. Procedures None recorded. Surgeries None recorded. Imaging None recorded. Medication Orders None recorded. Patient TargetsNo targets recorded. Patient InstructionsNo instructions recorded. Reason for Referral None Reported. Results Created Date Observation Date Name Description Value Unit Range Abnormal Flag Note LastModifiedBy Organization Detail LastModifiedTime 10/24/1910/24/2024 urina lysis , dipst ick Unknown Analyte Normal = light yellow Not Available [facility] [address] [place] [address], [phone], 10/24/2024 18:39:41 10/24/1910/24/2024 urina lysis , dipst ick Unknown Analyte Normal = clear Not Available ie [address], [phone], 10/24/2024 18:39:41 10/24/19 25 10/24/2024 urina lysis , dipst ick Unknown Analyte Normal = negati ve Not Available [facility] ie [facility] [address] [place] [address], [phone], 10/24/2024 18:39:41 10/24/19 25 10/24/2024 urina lysis , dipst ick Unknown Analyte Negati ve Not Available [facility] [address] [place] [address], [phone], 10/24/2024 18:39:41 10/24/19 25 10/24/2024 urina lysis , dipst ick Unknown Analyte Normal = Negati ve Not Available [facility] [address] [place] [address], [phone], 10/24/2024 18:39:41 10/24/19 25 10/24/2024 urina lysis , dipst ick Unknown Analyte Small Not Available [facility] [address] [place] [address], [phone], 10/24/2024 18:39:41 10/24/19 25 10/24/2024 urina lysis , dipst ick Unknown Analyte Normal = Negati ve Not Available [facility] [address] [place] [address], [phone], 10/24/2024 18:39:41 10/24/1910/24/2024 urina lysis , dipst ick Unknown Analyte Trace Not Available [facility] [address] [place] [address], [phone], 10/24/2024 18:39:41 10/24/19 25 10/24/2024 urina lysis , dipst ick Unknown Analyte Normal = 1.010, 1.015, 1.020 Not Available [facility] [address] [place] [address], [phone], 10/24/2024 18:39:41 01/16/10/24/2024 urina lysis , dipst ick Unknown Analyte Normal = Negati ve Not Available [facility] [address] [place] [address], [phone], 10/24/2024 18:39:41 10/24/19 25 10/24/2024 urina lysis , dipst ick Unknown Analyte Negati ve Not Available [facility] [address] [place] [address], [phone], 10/24/2024 18:39:41 10/24/19 25 10/24/2024 urina lysis , dipst ick Unknown Analyte Normal = 6.5, 7.0, 7.5, 8.0 Not Available [facility] [address] [place] [address], [phone], 10/24/2024 18:39:41 10/24/19 25 10/24/2024 urina lysis , dipst ick Unknown Analyte Normal = Negati ve Not Available [facility] [address] [place] [address], [phone], 10/24/2024 18:39:41 10/24/19 25 10/24/2024 urina lysis , dipst ick Unknown Analyte 30 mg/dL Not Available [facility] [address] [place] [address], [phone], 10/24/2024 18:39:41 10/24/19 25 10/24/2024 urina lysis , dipst ick Unknown Analyte Normal = Negati ve Not Available [facility] [address] [place] [address], [phone], 10/24/2024 18:39:41 10/24/19 25 10/24/2024 urina lysis , dipst ick Unknown Analyte Negati ve Not Available [facility] [address] [place] [address], [phone], 10/24/2024 18:39:41 10/24/19 25 10/24/2024 urina lysis , dipst ick Unknown Analyte Normal = Negati ve Not Available [facility] [address] [place] [address], [phone], 10/24/2024 18:39:41 10/24/19 25 10/24/2024 urina lysis , dipst ick Unknown Analyte Trace Not Available [address], [address], 10/24/2024 18:39:41 10/24/19 25 10/24/2024 urina lysis , dipst ick Unknown Analyte Yellow Not Available [address], [phone], 10/24/2024 18:39:41 10/24/19 25 10/24/2024 urina lysis , dipst ick Unknown Analyte Clear Not Available [address] [place] [address], [phone], 10/24/2024 18:39:41 10/24/19 25 10/24/2024 urina lysis , dipst ick Unknown Analyte 1.030 Not Available [address], [phone], 10/24/2024 18:39:41 10/24/19 25 10/24/2024 urina lysis , dipst ick Unknown Analyte 6.5 Not Available [address], [phone], 10/24/2024 18:39:41 10/24/19 25 10/24/2024 urina lysis , dipst ick Unknown Analyte Normal = 0.2, 1.0 Not Available [facility] [address] [place] [address], [phone], 10/24/2024 18:39:41 10/24/1910/24/2024 urina lysis , dipst ick Unknown Analyte 0.2 E.U./d L Not Available _ [address] [facility] [place], [address], 10/24/2024 18:39:41 Result Notes None recorded. Problems Name Problem SNOMED Code Status Onset Date Resolution Date Notes Provider Name and Address Organization Details Recorded Time Asthma 757671307 Active Rodrigue jack PA - [facility] 10/24/2024 18:37:44 Problem Notes None recorded. Medical Equipment None Reported. Allergies No known drug allergies Medications Name Sig Start Date Stop Date Status Note LastModified by Organization Details LastModified Time albuterol sulfate active Not Available Not Available Not Available Vitals Date Recorded Body height Body mass index (BMI) Body weight Oxygen saturation Oxygen saturation in Arterial blood by Pulse oximetry Heart rate Respiratory rate Body temperature Systolic And Diastolic Provider Name and Address Organization Details Last Updated DateTime 180.34 cm 41.1 kg/m2 322773. 75 g 100 % 100 % 100 /min 18 /min 98 [degF] 120/80 mm[Hg] Rodrigue Johnson [facility] 18:34:47 Social History Question Answer Notes LastModified by Organizat ion Details LastModified Time Tobacco Smoking Status Current Every Day Smoker Rodrigue jack PA - [facility] 10/24/2024 18:38:43 Have You Had A Flu Shot This Season? No Information not available 10/24/2024 If No, Would You Like A Flu Shot Today? No Information not available 10/24/2024 What Is Your Water Source? City Information not available 10/24/2024 What Is Your Heat Source? Gas Information not available 10/24/2024 What Is Your Current Pack Years? 30ormorepac kyears Information not available 10/24/2024 What Is Your Relationship Status? Information not available 10/24/2024 Are You Passively Exposed To Smoke? No Information no t available 10/24/2024 How Much Tobacco Do You Smoke? 1 PPD Information not available 10/24/2024 Have You Recently Traveled Abroad? Yes Information not available 10/24/2024 Sex: Unknown Functional Status Question Answer Note LastModified by Organizat ion Details LastModified Time Do you use any illicit or recreational drugs? Yes Information not available 10/24/2024 Do you or have you ever used any other forms of tobacco or nicotine? No Information not available 10/24/2024 Are you currently employed? Yes Information not available 10/24/2024 Mental Status None recorded. Family History Relationship [...] SNOMED-CT Code Diagnosis ICD10 Code Diagnosis Note [id number] 2099[facility] [phone] 10/01/2020 11:40:45 10/01/2020 15:48:[id number] [place] [address] [address] [place] [phone] 08/02/2019 16:29:29 08/02/2019 16:58:[id number] [place] [address] [address] [address] 09/28/2018 12:37:00 09/28/2018 13:56:[id number] [place] [address] [address] [place] [phone] 02/14/2018 14:04:27 02/14/2018 14:40:59 [id number] [address] [place] [address] 08/20/2022 13:09:31 08/20/2022 13:36:16 [id number] [facility] [address] [place] [phone] 12/06/2021 15:38:43 12/06/2021 17:30:43 [id number] [address] [address] [place] [phone] 04/03/2022 16:34:06 04/03/2022 17:19:02 [id number] [address] [address] [place] [phone] 02/02/2019 17:40:41 02/02/2019 18:11:09 [id number] [address] [address] [place] [phone] 04/11/2019 16:49:13 04/11/2019 17:16:00 [id number] [address] [address] [place] [phone] 08/21/2020 13:32:40 08/21/2020 19:45:56 [id number] [address] [address] [place] [phone] 11/18/2017 18:53:37 11/18/2017 19:43:48 [id number] [address] [place] [phone] 12/15/2019 14:51:38 12/15/2019 16:10:53 [id number] [address] [address] [place] [phone] 02/29/2020 19:25:47 02/29/2020 19:50:36 [id number] [address] [address] [place] [phone] 04/10/2020 09:59:18 04/10/2020 10:51:39 [id number] [facility] [address] [place] [phone] 09/19/2018 14:37:52 09/19/2018 15:17:48 [id number] THAD Couch [address] [place] [phone] 10/24/2024 17:58:42 10/24/2024 18:53:27 Rib pain [id number] R07.81 You were seen today for rib [...] for further evaluation .Thank you for using [facility] today, please feel free to contact our office if you have any questions or concerns. Health Concerns Section Related Observation LastModified by Organization Detai ls LastModified Time None Recorded Concern Status LastModified by Organization Details LastModified Time None Recorded Advance Directives Directive None Recorded Payers Insurance Date Sequence Insurance Name Policy Number Policy Chavez Covered Member ID Chavez Member ID Guarantor Name 10/24/[address] [place] [address] [id number] [facility] [id number] Brent Akhtar Notes Date Note Type Note [...] a lot recently THAD Couch [address], FelixCrescencio, [id number], [place] - [facility] 10/24/2024 18:56:51
--- OUTSIDE RECORDS SUMMARY | 2025-04-14 15:53 | XMS_ITS ---
Author Name [facility] Organization Unknown Encounters Encounter Type Encounter Reason Primary Diagnosis Location Date Ambulatory [facility]. ([facility] 10/24/2024
[2025-04-14 17:52] LABS: MANUAL DIFF FLAG NO
[2025-04-14 17:57] LABS: Hematocrit 50.4 % (42.0-52.0); Hemoglobin 17.4 g/dl (14.0-18.0); Imm Gran Abs Auto 0.02 X10*3/uL (0.00-0.03); Imm Gran Pct Auto 0.3 % (0.0-0.4); Lymphocytes Absolute Auto 2.4 X10*3/uL (1.2-4.9); Mean Corpuscular HGB Conc 34.5 g/dl (31.0-36.0); Mean Corpuscular Hemoglobin 32.3 pg (27.0-33.0); Mean Corpuscular Volume 93.7 fL (80.0-98.0); NRBC Abs Auto 0.000 X10*3/uL (0.0-0.012); NRBC Pct Auto 0.0 /100WBC (0.0-0.2); Platelet Count 360 X10*3/uL (160-400); Red Blood Count 5.38 X10*6/uL (4.60-5.80); White Blood Count 6.1 X10*3/uL (4.8-10.8)
[2025-04-14 18:04] LABS: Alanine Aminotransferase 44 U/L (0-40); Albumin Level 4.3 g/dL (3.5-5.0); Alkaline Phosphatase 65 U/L (39-117); Anion Gap 14 (12-20); Aspartate Amino Transferase 34 U/L (5-37); Blood Urea Nitrogen 11 mg/dL (9-16); Calcium 9.3 mg/dL (8.4-10.2); Carbon Dioxide 23 mmol/L (22-29); Chloride 105 mmol/L (96-108); Cholesterol 176 mg/dL (<200); Estimated Glomerular Filt Rate > 60; HDL Cholesterol 40 mg/dL (>40); Potassium 3.9 mmol/L (3.3-5.1); Sodium 138 mmol/L (135-145); Total Protein 7.5 g/dL (6.5-8.0); Triglycerides 121 mg/dL (<150)
[2025-04-18 18:59] LABS: PSA, Ultra Sensitive 0.93 ng/mL
== END 2025-04-14 15:49 | disposition home or self-care (01) ==
LOC: HO.WFDLDS 15:48
PROVIDERS: Referring Provider Nurse Practitioner Family; Visit Provider Family Medicine
DX: Z00.00 Encounter for general adult medical examination without abnormal findings (principal); R74.8 Abnormal levels of other serum enzymes; D75.1 Secondary polycythemia; E78.00 Pure hypercholesterolemia, unspecified
CPT/HCPCS: 36415; 80053; 80061; 84153; 85025

== ENCOUNTER 2025-04-16 14:29 | Outpatient (AMB) | payer OTHER, SELFPAY ==
--- NOTE | 2025-04-16 14:36 | A.OFFPC_ITS ---
Vital Signs 04/16/25 14:41 Height 5 ft 11 in Weight 298 lb BMI 41.6 BP 122/88 Blood Pressure Location Rt brachial Position Sitting Respiration 13 Pulse 77 Pulse Source Pulse Oximeter Temp 97.8 F Temp Source Temporal Artery Scan Pulse Oximetry (%) 96 Oxygen Delivery Method Room Air Intake Visit Reasons: f/u HLD Intake Note: Brent presents in the office today for his cholesterol. Patient has two different set of labs available in his EMR. Patient was seen at [place] for an knee issue. Was given a referral to Orthopedics. Allergies No Known Allergies (No Known Allergies*) Allergy (Verified 04/16/25 14:38) Tobacco use date assessed: 04/16/25 Dental Screening Dental Screen Date: 04/16/25 Did you have a dental visit in the last 12 months?: No Did you have a dental problem in the last 6 months where you did not have access to dental care?: No Was dental information given to patient?: Patient has dentist HPI f/u HLD HPI Details 39 y/o male presents to /u [facility], midly e levated liver enzymes. Labs drawn 04/14/25. Reviewed labs with pt. AST 34. ALT 44. Triglycerides 121. TC 176. LDL 112. HDL 40. Pt notes he has been working on trying to lose weight. Reports L knee pain. HPI Comments History of Present Illness Details Documentation assistance for Olvin Mejia MD, was provided by Torrey Maurice,? Chain Machine Operator on 04/16/2025 at 2:57 PM EST. I, Dr. Mejia, have read, observed, and verified documentation. ?? [facility] Medical History Elevated fasting blood sugar Surgical History History of vasectomy History of appendectomy Family History Father No problems noted. Mother No problems noted. Sister No problems noted. Son No problems noted. Daughter No problems noted. 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 Cachorro Bowman, Gayla Dye, Ortega Easley and colleagues, with an educational magali from [employer]. Review of Systems Const Denies chills, Denies fatigue, Denies fever(s), Denies headache(s) and Denies weakness ENT Denies dizziness and Denies headache(s) Card Denies dyspnea Resp Denies cough, Denies dyspnea, Denies wheezing and Denies other (shortness of breath) Musc Denies numbness and Denies tingling Neuro Denies dizziness, Denies headache(s), Denies numbness, Denies tingling and Denies weakness Psych Denies anxiety and Denies depression Endo Denies fatigue Aller/Immun Denies wheezing Physical exam (Primary Care) Vital Signs: Last Vital Signs Temp 97.8 F 04/16/25 14:41 Pulse 77 04/16/25 14:41 Resp 13 04/16/25 14:41 BP 122/88 04/16/25 14:41 Pulse Ox 96 04/16/25 14:41 Oxygen Delivery Method Room Air 04/16/25 14:41 BMI result Body Mass Index 41.6 Tobacco/Smoking Status: Tobacco use Status Tobacco use date assessed 04/16/25 04/16/25 14:45 Patient Tobacco Use Status Current everyday Tobacco 04/16/25 14:45 e-Cigarette/Vaping Use Never Used 04/16/25 14:45 Thrive Assessment: Date of Thrive Assessment Date Thrive assessed 03/24/25 04/16/25 14:45 Const General: well developed; No acute distress Nutritional Appearance: well nourished and obese morbidly obese Orientation/consciousness: patient oriented x3 HENMT Head: Yes normocephalic and Yes atraumatic Eyes General: appearance normal, both eyes and all related structures Pupils: Equal, round and reactive pupils present EOM: EOMs intact bilaterally Resp Effort & Inspection: normal respiratory effort Neuro General: patient oriented x3 and gait normal Cranial nerves: Yes Equal, round and reactive pupils present Psych Affect: normal affect Coding Level of Care Code Est Pt Level 4 (85874) Diagnoses Elevated LDL cholesterol level E78.00 Elevated liver enzymes R74.8 Knee pain M25.569 Assessment & Plan Assessment & Plan (1) Elevated LDL cholesterol level: Code(s): E78.00 - Pure hypercholesterolemia, unspecified Category: Medical Plan: LDL cholesterol is still above goal of less than 100 Encouraged diet lower in saturated fats and cholesterol Encouraged weight loss and exercise (2) Elevated liver enzymes: Code(s): R74.8 - Abnormal levels of other serum enzymes Category: Medical Plan: ALT is still elevated Prior ultrasound showed fatty liver disorder. Elastography ruled out compensated advanced chronic liver disease. Encouraged weight loss and patient has been working on this as well exercise Advised he decrease alcohol intake and work at good hydration as well (3) Knee pain: Code(s): M25.569 - Pain in unspecified knee Category: Medical Plan: Left knee pain. Patient went to emergency department and x-ray was negative. They gave him a script for naproxen. Continue naproxen Ice/heat Demonstrated exercises for patient He would like a referral to [facility]-ordered Orders: Orders Lipid Panel Today Z00.00 - Encounter for general adult medical examination without abnormal findings Comprehensive [place]. Panel Fast Today Z00.00 - Encounter for general adult medical examination without abnormal findings Referrals Orthopedics Referral M25.569 - Pain in unspecified knee
[2025-04-16 14:41] VITALS: BP 122/88; PULSE 77; RESP 13; TEMP 36.6; O2SAT 96; BMI 41.6
--- OUTSIDE RECORDS SUMMARY | 2025-04-16 15:02 | XMS_ITS | Data Portability ---
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 Plan of Treatment Reminders Order Date Submit Date Provider Last Modified By Organization Details Last Modified Time Details Appointments None recorded. Lab urinalysis , dipstick 2024 025 [email or web address] [facility], [address] [place] [address], [phone], 18:52:37 Referral None recorded. Procedures None recorded. Surgeries None recorded. Imaging None recorded. Medication Orders None recorded. Patient TargetsNo targets recorded. Patient InstructionsNo instructions recorded. Reason for Referral None Reported. Results Created Date Observation Date Name Description Value Unit Range Abnormal Flag Note LastModifiedBy Organization Detail LastModifiedTime 10/24/1910/24/2024 urina lysis , dipst ick Unknown Analyte Normal = light yellow Not Available [facility] [address] [place] [address], [phone], 10/24/2024 18:39:41 10/24/1910/24/2024 urina lysis , dipst ick Unknown Analyte Normal = clear Not Available ie [address], [address], 10/24/2024 18:39:41 10/24/19 25 10/24/2024 urina lysis , dipst ick Unknown Analyte Normal = negati ve Not Available [facility] [address] [place] [address], [phone], 10/24/2024 18:39:41 10/24/19 25 10/24/2024 urina lysis , dipst ick Unknown Analyte Negati ve Not Available [facility] [address] [place] [address], [phone], 10/24/2024 18:39:41 10/24/19 25 10/24/2024 urina lysis , dipst ick Unknown Analyte Normal = Negati ve Not Available [facility] [address] [place] [address], [phone], 10/24/2024 18:39:41 10/24/19 25 10/24/2024 urina lysis , dipst ick Unknown Analyte Small Not Available [facility] [address] [place] [address], [phone], 10/24/2024 18:39:41 10/24/19 25 10/24/2024 urina lysis , dipst ick Unknown Analyte Normal = Negati ve Not Available [facility] [address] [place] [address], [address], 10/24/2024 18:39:41 10/24/1910/24/2024 urina lysis , dipst ick Unknown Analyte Trace Not Available [facility] [address] [place] [address], [phone], 10/24/2024 18:39:41 10/24/19 25 10/24/2024 urina lysis , dipst ick Unknown Analyte Normal = 1.010, 1.015, 1.020 Not Available [facility] [address] [place] [address], [phone], 10/24/2024 18:39:41 01/16/10/24/2024 urina lysis , dipst ick Unknown Analyte Normal = Negati ve Not Available [facility] [address] [address] [place] [address], [phone], 10/24/2024 18:39:41 10/24/19 25 10/24/2024 urina lysis , dipst ick Unknown Analyte Negati ve Not Available [facility] [address] [place] [address], [phone], 10/24/2024 18:39:41 10/24/19 25 10/24/2024 urina lysis , dipst ick Unknown Analyte Normal = 6.5, 7.0, 7.5, 8.0 Not Available [facility] [address] [place] [address], [phone], 10/24/2024 18:39:41 10/24/19 25 10/24/2024 urina lysis , dipst ick Unknown Analyte Normal = Negati ve Not Available [facility] [address] [address] [place] [address], [phone], 10/24/2024 18:39:41 10/24/19 25 10/24/2024 urina lysis , dipst ick Unknown Analyte 30 mg/dL Not Available [facility] [address] [place] [address], [address], 10/24/2024 18:39:41 10/24/19 25 10/24/2024 urina lysis , dipst ick Unknown Analyte Normal = Negati ve Not Available [facility] [address] [place] [address], [phone], 10/24/2024 18:39:41 10/24/19 25 10/24/2024 urina lysis , dipst ick Unknown Analyte Negati ve Not Available [facility] [address] [place] [address], [address], 10/24/2024 18:39:41 10/24/19 25 10/24/2024 urina lysis , dipst ick Unknown Analyte Normal = Negati ve Not Available [facility] [address] [place] [address], [address], 10/24/2024 18:39:41 10/24/19 25 10/24/2024 urina lysis , dipst ick Unknown Analyte Trace Not Available [address], [address], 10/24/2024 18:39:41 10/24/19 25 10/24/2024 urina lysis , dipst ick Unknown Analyte Yellow Not Available [address], [address], 10/24/2024 18:39:41 10/24/19 25 10/24/2024 urina lysis , dipst ick Unknown Analyte Clear Not Available [address] [place] [address], [phone], 10/24/2024 18:39:41 10/24/19 25 10/24/2024 urina lysis , dipst ick Unknown Analyte 1.030 Not Available [address], [address], 10/24/2024 18:39:41 10/24/19 25 10/24/2024 urina lysis , dipst ick Unknown Analyte 6.5 Not Available [address], [address], 10/24/2024 18:39:41 10/24/19 25 10/24/2024 urina lysis , dipst ick Unknown Analyte Normal = 0.2, 1.0 Not Available [facility] [address] [place] [address], [address], 10/24/2024 18:39:41 10/24/1910/24/2024 urina lysis , dipst ick Unknown Analyte 0.2 E.U./d L Not Available _ [facility] [address] [place], [address], 10/24/2024 18:39:41 Result Notes None recorded. Problems Name Problem SNOMED Code Status Onset Date Resolution Date Notes Provider Name and Address Organization Details Recorded Time Asthma 017704914 Active Rodrigue jack PA - [facility] [...] Last Updated DateTime 180.34 cm 41.1 kg/m2 327326. 75 g 100 % 100 % 100 [...] SNOMED-CT Code Diagnosis ICD10 Code Diagnosis Note [id number] 2099[facility] [address] [address] 10/01/2020 11:40:45 10/01/2020 15:48:[id number] [place] [address] [address] [place] [address] 08/02/2019 16:29:29 08/02/2019 16:58:[id number] [place] [address] [address] [address] 09/28/2018 12:37:00 09/28/2018 13:56:[id number] [place] [address] [address] [place] [address] 02/14/2018 14:04:27 02/14/2018 14:40:59 [id number] [address] [place] [address] 08/20/2022 13:09:31 08/20/2022 13:36:16 [id number] [address] [address] [place] [address] 12/06/2021 15:38:43 12/06/2021 17:30:43 [id number] [address] [place] [address] 04/03/2022 16:34:06 04/03/2022 17:19:02 [id number] [address] [address] [place] [address] 02/02/2019 17:40:41 02/02/2019 18:11:09 [id number] [address] [address] [place] [address] 04/11/2019 16:49:13 04/11/2019 17:16:00 [id number] [address] [place] [address] 08/21/2020 13:32:40 08/21/2020 19:45:56 [id number] [address] [facility] [address] [address] [place] [address] 7 11/18/2017 18:53:37 11/18/2017 19:43:48 [id number] [address] [address] [address] [place] [address] 12/15/2019 14:51:38 12/15/2019 16:10:53 [id number] [address] [facility] [address] [address] [place] [address] 02/29/2020 19:25:47 02/29/2020 19:50:36 [id number] [facility] [facility] [address] [place] [address] 04/10/2020 09:59:18 04/10/2020 10:51:39 [id number] [facility] [address] [place] [address] 09/19/2018 14:37:52 09/19/2018 15:17:48 [id number] THAD Couch [address] [place] [phone] 10/24/2024 17:58:42 10/24/2024 18:53:27 Rib pain [id number] R07.81 You were seen today for rib [...] ID Chavez Member ID Guarantor Name 10/24/[address] [place] [address] [id number] [facility] [id number] Brent Akhtar Notes Date Note Type Note [...] a lot recently THAD Couch [address], [place], [address], PA - [facility] 10/24/2024 18:56:51
== END 2025-04-16 16:32 | disposition home or self-care (01) ==
LOC: HO.HMCFM 14:30
PROVIDERS: PCP Family Medicine; Visit Provider Family Medicine
DX: E78.00 Pure hypercholesterolemia, unspecified (principal); R74.8 Abnormal levels of other serum enzymes; M25.569 Pain in unspecified knee

== ENCOUNTER 2025-07-28 14:00 | Outpatient (AMB) | payer OTHER, SELFPAY ==
--- NOTE | 2025-07-28 14:05 | MHC.OFFVIS ---
Vital Signs 07/28/25 14:13 Height 5 ft 11 in Weight 294 lb 1.546 oz BMI 41.0 BP 140/84 H Blood Pressure Location Rt brachial Position Sitting Pulse 90 Pulse Source Pulse Oximeter Pulse Oximetry (%) 96 Oxygen Delivery Method Room Air Intake Visit Reasons: Diarrhea Intake Note: New pt for initial eval of BM irregularity + liver abnormalities CC: C.O. intermittent difficulties with loose or poorly formed stools + skinny stools. Pt states that this has improved somewhat since he has been making dietary adjustments and having gradual weight loss. Pt denies any additional GI concerns but does report that he consumes more than his fair share of alcoholic beverages on a regular basis. 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 Patient was sent to us by his PCP for evaluation of his symptoms that have been going on for some time. Patient reports postprandial loose stools. Several bowel movements throughout the day. Patient reports that no matter what he eats he will have urged to go to have a bowel movement. Usually his stool is soft and not formed. No loose stools, however occasionally when stool is softer occasionally can see mucus in his stool. Patient denies melena, hematochezia, unintentional weight loss of in like stools. Patient admits that his diet was not always great. He is trying to do better and eat more vegetables and salads. Patient is trying to avoid carbs and fried food. He usually skips breakfast and does not eat till 1 or 2 in the afternoon. Usually eats 2 meals a day. Patient denies any nausea or vomiting. Denies any dyspepsia, dysphagia or odynophagia. Patient admits to drinking alcohol daily as well as smoking. Patient reports that he usually will have 7 drinks a day which will include some beer and some hard liquor like bourbon. [facility] Medical History Elevated fasting blood sugar Surgical History History of vasectomy History of appendectomy Family History Father No problems noted. Mother No problems noted. Sister No problems noted. Son No problems noted. Daughter No problems noted. 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 Current occupational exposures/hazards: No Cognitive needs: No Hearing needs: No Vision needs: No Review of Systems Const Denies weight gain and Denies weight loss ENT Reports no additional complaints, Denies dysphagia and Denies odynophagia Card Reports no additional complaints Resp Reports no additional complaints GI Denies abdominal pain, Denies belching, Denies melena, Denies bloating, Denies change in bowel habits, Reports tenesmus, Denies dysphagia, Denies excessive flatus, Denies dyspepsia, Denies heartburn, Denies diarrhea, Reports loose stools, Denies nausea, Denies odynophagia and Denies vomiting Reports no additional complaints Musc Reports no additional complaints Neuro Reports no additional complaints Psych Reports no additional complaints Endo Reports no additional complaints Physical Exam Vital Signs: Last Vital Signs Pulse 90 07/28/25 14:13 BP 140/84 H 07/28/25 14:13 Pulse Ox 96 07/28/25 14:13 Oxygen Delivery Method Room Air 07/28/25 14:13 BMI result Body Mass Index 41.0 Const General: healthy appearing, no acute distress and well developed Nutritional Appearance: well nourished and obese Orientation/consciousness: patient oriented x3 Resp Effort & Inspection: normal respiratory effort, able to speak in complete sentences, no tracheal deviation and symmetric chest movement Auscultation: clear to auscultation bilaterally Cardio Rate: regular rate GI Inspection: Yes normal to inspection, No distended and Yes obesity Palpation (GI): Soft to palpation, not firm, nontender and No hepatosplenomegaly present Auscultation: normal bowel sounds General: Yes no CVA tenderness Back/Spine/Pelvis Back: no CVA tenderness Skin General skin exam: elasticity normal, turgor normal and dry skin Neuro General: patient oriented x3 Psych Appearance: grossly normal Mental Status: mental status grossly normal Results Reviewed Results Reviewed: Laboratory Tests 03/21/24 01/08/25 04/14/25 15:32 14:25 15:51 Total Bilirubin 1.1 H 0.6 0.8 AST 39 H 29 34 ALT 75 H 41 H 44 H Alkaline Phosphatase 71 59 65 ABDOMINAL ULTRASOUND WITH LIVER ELASTOGRAPHY 04/19/2024 FINDINGS: PANCREAS: Largely obscured by overlapping bowel gas. LIVER: The liver demonstrates normal contour and increased echogenicity, with pericholecystic sparing. No focal lesion or intrahepatic biliary duct dilatation. The right lobe measures 22.7 cm in length. The left lobe measures 13.4 cm in length. Portal flow is towards the liver (hepatopetal). Shear wave liver elastography median stiffness is 1.44 m/s (reference: normal median stiffness is 1.3 m/s or less). IQR/median stiffness to assess sampling precision is 0.09 (reference: good quality data set is IQR/median stiffness of 0.15 or less). GALLBLADDER: Normal. The gallbladder is physiologically distended without evidence of stones, sludge, polyps, wall thickening or pericholecystic fluid. COMMON BILE DUCT: Normal in caliber measuring 0.4 cm in diameter. RIGHT KIDNEY: Normal. No hydronephrosis. No renal calculi or focal parenchymal lesions. The kidney measures 11.1 cm in maximum dimension. FREE FLUID: None. US/US abdomen merida w elastography IMPRESSION: 1. There is generalized increase in hepatic echotexture, consistent with fatty infiltration or hepatocellular disease. Please correlate clinically. Characteristic pericholecystic sparing favors fatty infiltration. No focal hepatic mass or intrahepatic biliary dilatation is seen. 2. There is hepatomegaly. 3. Liver elastography: In the absence of other known clinical signs, measurements rule out compensated advanced chronic liver disease. If there are known clinical signs, further testing may be needed for confirmation. 4. Technically limited ultrasound examination the pancreas. Assessment & Plan Assessment & Plan (1) Elevated liver enzymes: Code(s): R74.8 - Abnormal levels of other serum enzymes Category: Medical (2) Diarrhea: Code(s): R19.7 - Diarrhea, unspecified Category: Medical Qualifiers: Diarrhea type: functional diarrhea Qualified Code(s): K59.1 - Functional diarrhea (3) Transaminitis: Code(s): R74.01 - Elevation of levels of liver transaminase levels Plan Discussed patient trying to increase fiber in his diet. Avoid dietary triggers. Discussed low FODMAP diet. List of food recommended as well as list of food to avoid given to patient. Patient will go for more blood work. Will check transglutaminase, lipase, liver panel, thyroid study, vitamin B12, folate, vitamin-D level. Will also check A1c. Discussed with patient trying to lose weight and eating healthier. Avoid alcohol and smoking. He will follow-up in our office in 6 months. Patient was encouraged to call our office if you have any GI concerning symptoms. He is agreeable to this plan and verbalizes understanding of instructions. He was given the opportunity to ask questions and all questions answered. Thank you for allowing me to participate in his care Orders: Orders Transglutaminase IgA Today R10.9 - Unspecified abdominal pain Lipase Today R10.9 - Unspecified abdominal pain Liver Panel Today R74.01 - Elevation of levels of liver transaminase levels TSH reflex Free T4 Today K59.00 - Constipation, unspecified Vitamin B12 and Folate Today R19.7 - Diarrhea, unspecified Hemoglobin A1c Today Z83.3 - Family history of diabetes mellitus Vitamin D 25-OH (D2 and D3) Today E55.9 - Vitamin D deficiency, unspecified Medications: New methylcellulose (laxative) (Citrucel) take it with full glass of water 500 mg PO DAILY 90 tabs 2RF K59.00 - Constipation, unspecified Coding Level of Care Code New Pt Level 4 (77672) Diagnoses Elevated liver enzymes R74.8 Functional diarrhea K59.1 Diarrhea type: functional diarrhea Transaminitis R74.01 Time Spent (min) 50 Comment 35 minute spent with patient and additional 15 minutes spent reviewing his records
[2025-07-28 14:13] VITALS: BP 140/84; PULSE 90; O2SAT 96; BMI 41.0
--- OUTSIDE RECORDS SUMMARY | 2025-07-28 17:35 | XMS_ITS | Data Portability ---
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 Plan of Treatment Reminders Order Date Submit Date Provider Last Modified By Organization Details Last Modified Time Details Appointments None recorded. Lab urinalysis , dipstick 2024 025 [email or web address] [facility] [place], [address] [place] [address], [phone], 18:52:37 Referral None recorded. Procedures None recorded. Surgeries None recorded. Imaging None recorded. Medication Orders None recorded. Patient TargetsNo targets recorded. Patient InstructionsNo instructions recorded. Reason for Referral None Reported. Results Created Date Observation Date Name Description Value Unit Range Abnormal Flag Note LastModifiedBy Organization Detail LastModifiedTime 10/24/1910/24/2024 urina lysis , dipst ick Unknown Analyte Normal = light yellow Not [facility] [address] [place] [address], [address], 10/24/2024 18:39:41 10/24/1910/24/2024 urina lysis , dipst ick Unknown Analyte Normal = clear Not Available ie [address], [address], 10/24/2024 18:39:41 10/24/19 25 10/24/2024 urina lysis , dipst ick Unknown Analyte Normal = negati ve Not Available [facility] [address] [place] [address], [address], 10/24/2024 18:39:41 10/24/19 25 10/24/2024 urina lysis , dipst ick Unknown Analyte Negati ve Not Available [facility] [address] [place] [address], [address], 10/24/2024 18:39:41 10/24/19 25 10/24/2024 urina lysis , dipst ick Unknown Analyte Normal = Negati ve Not Available [facility] [address] [place] [address], [address], 10/24/2024 18:39:41 10/24/19 25 10/24/2024 urina lysis , dipst ick Unknown Analyte Small Not Available [facility] [address] [place] [address], [address], 10/24/2024 18:39:41 10/24/19 25 10/24/2024 urina lysis , dipst ick Unknown Analyte Normal = Negati ve Not Available [facility] [address] [place] [address], [address], 10/24/2024 18:39:41 10/24/1910/24/2024 urina lysis , dipst ick Unknown Analyte Trace Not Available [facility] [address] [place] [address], [address], 10/24/2024 18:39:41 10/24/19 25 10/24/2024 urina lysis , dipst ick Unknown Analyte Normal = 1.010, 1.015, 1.020 Not Available [facility] [address] [place] [address], [address], 10/24/2024 18:39:41 01/16/10/24/2024 urina lysis , dipst ick Unknown Analyte Normal = Negati ve Not Available [facility] [address] [place] [address], [address], 10/24/2024 18:39:41 10/24/19 25 10/24/2024 urina lysis , dipst ick Unknown Analyte Negati ve Not Available [facility] [address] [place] [address], [address], 10/24/2024 18:39:41 10/24/19 25 10/24/2024 urina lysis , dipst ick Unknown Analyte Normal = 6.5, 7.0, 7.5, 8.0 Not Available [facility] [address] [place] [address], [address], 10/24/2024 18:39:41 10/24/19 25 10/24/2024 urina lysis , dipst ick Unknown Analyte Normal = Negati ve Not Available [facility] [address] [place] [address], [address], 10/24/2024 18:39:41 10/24/19 25 10/24/2024 urina lysis , dipst ick Unknown Analyte 30 mg/dL Not Available [facility] [address] [place] [address], [address], 10/24/2024 18:39:41 10/24/19 25 10/24/2024 urina lysis , dipst ick Unknown Analyte Normal = Negati ve Not Available [facility] [address] [place] [address], [address], 10/24/2024 18:39:41 10/24/19 25 10/24/2024 urina lysis , dipst ick Unknown Analyte Negati ve Not Available [facility] [address] [place] [address], [address], 10/24/2024 18:39:41 10/24/19 25 10/24/2024 urina lysis , dipst ick Unknown Analyte Normal = Negati ve Not Available [facility] [address] [place] [address], [address], 10/24/2024 18:39:41 10/24/19 25 10/24/2024 urina lysis , dipst ick Unknown Analyte Trace Not Available [address], [address], 10/24/2024 18:39:41 10/24/19 25 10/24/2024 urina lysis , dipst ick Unknown Analyte Yellow Not Available [address], [address], 10/24/2024 18:39:41 10/24/19 25 10/24/2024 urina lysis , dipst ick Unknown Analyte Clear Not Available [address] [place] [address], [address], 10/24/2024 18:39:41 10/24/19 25 10/24/2024 urina lysis , dipst ick Unknown Analyte 1.030 Not Available [address], [address], 10/24/2024 18:39:41 10/24/19 25 10/24/2024 urina lysis , dipst ick Unknown Analyte 6.5 Not Available [address], [address], 10/24/2024 18:39:41 10/24/19 25 10/24/2024 urina lysis , dipst ick Unknown Analyte Normal = 0.2, 1.0 Not Available [facility] [address] [place] [address], [address], 10/24/2024 18:39:41 10/24/1910/24/2024 urina lysis , dipst ick Unknown Analyte 0.2 E.U./d L Not Available [facility] [address] [place], [address], 10/24/2024 18:39:41 Result Notes None recorded. Problems Name Problem SNOMED Code Status Onset Date Resolution Date Notes Provider Name and Address Organization Details Recorded Time Asthma [id number] Active Rodrigue jack PA - [facility] [...] Last Updated DateTime 180.34 cm 41.1 kg/m2 911855. 75 g 100 % 100 % 5 100 /min 18 /min 98 [degF] 120/80 mm[Hg] Rodrigue Costa PA - [facility] 18:34:47 Social History Question Answer Notes LastModified by Organizat ion Details LastModified Time Tobacco Smoking Status Current Every Day Smoker Rodrigue jakc PA - [facility] 10/24/2024 18:38:43 Have [...] Diagnosis SNOMED-CT Code Diagnosis ICD10 Code Diagnosis IMO Codes Diagnosis Note [id number] [facility] [address] [address] 10/01/2020 11:40:45 10/01/2020 15:48:34 [id number] [facility] [address] [address] 08/02/2019 16:29:29 08/02/2019 16:58:59 [id number] [address] [address] [address] 09/28/2018 12:37:00 09/28/2018 13:56:50 [id number] [address] [place] [address] 02/14/2018 14:04:27 02/14/2018 14:40:59 [id number] [address] [place] [address] 08/20/2022 13:09:31 08/20/2022 13:36:16 [id number] [address] [place] [address] 12/06/2021 15:38:43 12/06/2021 17:30:43 [id number] [address] [place] [address] 04/03/2022 16:34:06 04/03/2022 17:19:02 [id number] [address] [place] [address] 02/02/2019 17:40:41 02/02/2019 18:11:09 [id number] [address] [facility] [place] [address] 04/11/2019 16:49:13 04/11/2019 17:16:00 [id number] [address] [place] [address] 08/21/2020 13:32:40 08/21/2020 19:45:56 [id number] [address] [place] [address] 11/18/2017 18:53:37 11/18/2017 19:43:48 [id number] [address] [place] [address] 12/15/2019 14:51:38 12/15/2019 16:10:53 [id number] [address] [place] [address] 02/29/2020 19:25:47 02/29/2020 19:50:[id number] [place] [address] [address] [place] [address] 04/10/2020 09:59:18 04/10/2020 10:51:[id number] [place] [address] [address] [address] 09/19/2018 14:37:52 09/19/2018 15:17:48 [id number] [facility] Couch [address] [facility] [address] [place] [address] 10/24/2024 17:58:42 10/24/2024 18:53:27 Rib pain [id number] R07.81 You were seen today for rib [...] Chavez Member ID Guarantor Name 10/24/[address] [place] [address] [id number] Hannah Soto [id number] Brent Akhtar Notes Date Note Type Note Provider Name and Address Organization Details Recorded Time 10/24/2024 text/html 39 y/o male with about 2 weeks of L side pain, worse with cough, not too bad with deep breaths. Better when sleeping on it , has not taken any medication.Did try a friend's vape that seemed to make him cough a lot recently THAD Couch [facility] [place], [address], PA - [facility] 10/24/2024 18:56:51
== END 2025-07-28 14:52 | disposition home or self-care (01) ==
LOC: HO.HGI 14:01
PROVIDERS: PCP Family Medicine; Visit Provider Nurse Practitioner Family
DX: R74.8 Abnormal levels of other serum enzymes (principal); K59.1 Functional diarrhea; R74.01 Elevation of levels of liver transaminase levels
CPT/HCPCS: 99204

== ENCOUNTER 2025-07-28 14:00 | Outpatient (REF) | payer OTHER, SELFPAY ==
[2025-07-28 17:20] LABS: Alanine Aminotransferase 39 U/L (0-40); Albumin Level 4.3 g/dL (3.5-5.0); Alkaline Phosphatase 66 U/L (39-117); Aspartate Amino Transferase 28 U/L (5-37); Lipase 29 U/L (8-78); Total Protein 7.7 g/dL (6.5-8.0)
[2025-07-28 17:26] LABS: Folate 5.5 ng/mL (> or = 4.0); Vitamin B12 383 pg/mL (200-900)
[2025-08-01 16:58] LABS: Vitamin D 25-OH, D2 <4 ng/mL; Vitamin D 25-OH, D3 18 ng/mL; Vitamin D 25-OH, Total 18 ng/mL (30-100)
== END 2025-07-28 14:01 | disposition home or self-care (01) ==
LOC: HO.LAB 14:00
PROVIDERS: PCP Family Medicine; Visit Provider Nurse Practitioner Family
DX: K59.1 Functional diarrhea (principal); R10.9 Unspecified abdominal pain; R74.8 Abnormal levels of other serum enzymes; R74.01 Elevation of levels of liver transaminase levels; E55.9 Vitamin D deficiency, unspecified; K59.00 Constipation, unspecified; Z83.3 Family history of diabetes mellitus; Z13.1 Encounter for screening for diabetes mellitus
CPT/HCPCS: 36415; 80076; 82306; 82607; 82746; 83036; 83690; 84443; 86364